=== PATIENT | female | born 1990 | race Caucasian/White ===

== ENCOUNTER → 2021-09-19 09:30 | Outpatient (BNVA) | payer OTHER, SELFPAY | PROVIDERS: PCP Internal Medicine; Visit Provider Internal Medicine | DX: E78.5 Hyperlipidemia, unspecified (principal); E55.9 Vitamin D deficiency, unspecified; E03.9 Hypothyroidism, unspecified; Z86.32 Personal history of gestational diabetes | CPT/HCPCS: 99212 ==

== ENCOUNTER 2021-09-21 09:07 | Outpatient (REF) | payer OTHER, SELFPAY ==
[2021-09-21 10:48] LABS: Estimated Average Glucose 97 mg/dL
[2021-09-21 10:52] LABS: Glucose Fasting 83 mg/dL (60-99)
[2021-09-21 11:00] LABS: Alanine Aminotransferase 10 U/L (0-31); Alkaline Phosphatase 52 U/L (39-117); Anion Gap 11 (12-20); Aspartate Amino Transferase 14 U/L (5-31); Bilirubin Total 0.4 mg/dL (0.0-1.0); Blood Urea Nitrogen 15 mg/dL (9-16); Calcium 9.3 mg/dL (8.4-10.2); Carbon Dioxide 26 mmol/L (22-29); Chloride 107 mmol/L (96-108); Cholesterol 253 mg/dL; Estimated Glomerular Filt Rate > 60; Glucose Random 85 mg/dL (60-115); HDL Cholesterol 44 mg/dL; LDL Cholesterol Calculated 189 mg/dl; Potassium 4.6 mmol/L (3.3-5.1); Sodium 139 mmol/L (135-145); Total Protein 6.7 g/dL (6.5-8.0); Triglycerides 104 mg/dL
[2021-09-21 11:16] LABS: Free T4 (Free Thyroxine) 1.09 ng/dL (0.71-1.85); Thyroid Stimulating Hormone 0.56 uIU/mL (0.32-4.0); Vitamin D 25-OH Total 19.5 ng/mL (>30)
[2021-09-21 12:21] LABS: Glucose 1 Hour 105 mg/dL
[2021-09-21 13:47] LABS: Glucose 2 Hour 95 mg/dL
[2021-09-22 08:32] LABS: LDL Cholesterol Direct 198 mg/dL (<100)
== END 2021-09-21 09:08 | disposition home or self-care (01) ==
LOC: HO.LAB 09:07
PROVIDERS: Visit Provider Internal Medicine
DX: E03.9 Hypothyroidism, unspecified (principal); E78.5 Hyperlipidemia, unspecified; E55.9 Vitamin D deficiency, unspecified; Z86.32 Personal history of gestational diabetes
CPT/HCPCS: 36415; 80053; 80061; 82306; 83036; 83721; 84439; 84443

== ENCOUNTER 2021-11-02 08:25 | Outpatient (REF) | payer OTHER, SELFPAY ==
[2021-11-02 09:55] LABS: Cholesterol 245 mg/dL; HDL Cholesterol 52 mg/dL; LDL Cholesterol Calculated 172 mg/dl; Triglycerides 108 mg/dL
[2021-11-02 10:18] LABS: Free T4 (Free Thyroxine) 1.06 ng/dL (0.71-1.85); Thyroid Stimulating Hormone 0.97 uIU/mL (0.32-4.0); Vitamin D 25-OH Total 29.7 ng/mL (>30)
[2021-11-04 01:41] LABS: LDL Cholesterol Direct 185 mg/dL (<100)
== END 2021-11-02 08:26 | disposition home or self-care (01) ==
LOC: HO.LAB 08:25
PROVIDERS: Visit Provider Internal Medicine
DX: E03.9 Hypothyroidism, unspecified (principal); E78.5 Hyperlipidemia, unspecified; E55.9 Vitamin D deficiency, unspecified
CPT/HCPCS: 36415; 80061; 82306; 83721; 84439; 84443

== ENCOUNTER → 2021-11-03 09:08 | Outpatient (BNVA) | payer OTHER, SELFPAY | PROVIDERS: PCP Internal Medicine; Visit Provider Internal Medicine | DX: Z13.89 Encounter for screening for other disorder (principal) ==

== ENCOUNTER 2022-01-30 11:08 | Outpatient (REF) | payer OTHER, SELFPAY ==
[2022-01-30 12:38] LABS: Alanine Aminotransferase 15 U/L (0-31); Albumin Level 4.2 g/dL (3.5-5.0); Alkaline Phosphatase 55 U/L (39-117); Anion Gap 9 (12-20); Aspartate Amino Transferase 14 U/L (5-31); Bilirubin Total 0.5 mg/dL (0.0-1.0); Blood Urea Nitrogen 13 mg/dL (9-16); Calcium 8.9 mg/dL (8.4-10.2); Carbon Dioxide 27 mmol/L (22-29); Chloride 106 mmol/L (96-108); Cholesterol 195 mg/dL; Estimated Glomerular Filt Rate > 60; Glucose Random 92 mg/dL (60-115); HDL Cholesterol 49 mg/dL; LDL Cholesterol Calculated 131 mg/dl; Potassium 4.3 mmol/L (3.3-5.1); Sodium 138 mmol/L (135-145); Total Protein 6.8 g/dL (6.5-8.0); Triglycerides 76 mg/dL
[2022-01-31 08:22] LABS: LDL Cholesterol Direct 136 mg/dL (<100)
[2022-02-03 12:31] LABS: Apolipoprotein B 102 mg/dL (<90)
== END 2022-01-30 11:09 | disposition home or self-care (01) ==
LOC: HO.LAB 11:08
PROVIDERS: Visit Provider Internal Medicine
DX: E78.5 Hyperlipidemia, unspecified (principal)
CPT/HCPCS: 36415; 80053; 80061; 82172; 83721

== ENCOUNTER → 2022-02-01 11:50 | Outpatient (BNVA) | payer OTHER, SELFPAY | PROVIDERS: Visit Provider Internal Medicine | DX: E78.5 Hyperlipidemia, unspecified (principal); E03.9 Hypothyroidism, unspecified; E55.9 Vitamin D deficiency, unspecified; Z79.899 Other long term (current) drug therapy | CPT/HCPCS: 99212 ==

== ENCOUNTER 2022-07-18 15:29 | Outpatient (REF) | payer OTHER, SELFPAY ==
[2022-07-18 16:39] LABS: Cholesterol 169 mg/dL; HDL Cholesterol 42 mg/dL; LDL Cholesterol Calculated 108 mg/dl; Triglycerides 97 mg/dL
[2022-07-18 16:55] LABS: Vitamin D 25-OH Total 40.1 ng/mL (>30)
[2022-07-20 03:48] LABS: LDL Cholesterol Direct 121 mg/dL (<100)
== END 2022-07-18 15:30 | disposition home or self-care (01) ==
LOC: HO.LAB 15:29
PROVIDERS: Visit Provider Internal Medicine
DX: E78.5 Hyperlipidemia, unspecified (principal); E55.9 Vitamin D deficiency, unspecified
CPT/HCPCS: 36415; 80061; 82306; 83721

== ENCOUNTER → 2022-07-19 14:50 | Outpatient (BNVA) | payer OTHER, SELFPAY | PROVIDERS: Visit Provider Internal Medicine | DX: E78.5 Hyperlipidemia, unspecified (principal); E55.9 Vitamin D deficiency, unspecified; E04.9 Nontoxic goiter, unspecified | CPT/HCPCS: 99212 ==

== ENCOUNTER 2022-08-03 08:53 | Outpatient (REF) | payer OTHER, SELFPAY ==
--- NOTE | ~2022-08-03 | US_ITS ---
EXAMINATION: US THYROID CLINICAL INFORMATION: Hypothyroidism, unspecified. COMPARISON: None TECHNIQUE: Linear transducer grayscale and color Doppler examination with attention to the region of the thyroid. FINDINGS: SIZE: Measurements of the thyroid lobes and nodules are given in sagittal, anteroposterior and transverse dimensions respectively. Right Thyroid Lobe: 5.34 x 1.61 x 1.59 cm, volume 7.17 mL. Parenchyma: The gland echotexture is homogeneous. Thyroid vascularity is normal. Left Thyroid Lobe: 4.89 x 1.33 x 1.95 cm, volume 6.63 mL. Parenchyma: The gland echotexture is homogeneous. Thyroid vascularity is normal. Isthmus: 0.31 cm in maximum AP dimension. No focal thyroid nodule is seen. NODES: No lymphadenopathy is seen in the tissue surrounding the thyroid gland. US/US thyroid IMPRESSION: Unremarkable thyroid ultrasound. ACR TI-RADS RECOMMENDATION REFERENCE: Ultrasound-guided fine-needle aspiration, followup ultrasound, no further follow up. * TR1 (0 point) and TR2 (2 points): No FNA or follow up. * TR3 (3 points): FNA if more than or equal to 2.5 cm in maximum dimension, followup ultrasound in 1, 3 and 5 years if 1.5 to 2.4 cm in maximum dimension. * TR4 (4-6 points): FNA if more than or equal to 1.5 cm in maximum dimension, followup ultrasound in 1, 2, 3 and 5 years if 1 to 1.4 cm in maximum dimension. * TR5 (more than or equal to 7 points): FNA if more than or equal to 1 cm in maximum dimension, followup ultrasound every year for 5 years if 0.5 to 0.9 cm in maximum dimension. * TR3, TR4 or TR5 nodules that are below the size threshold for followup receive no follow up.
== END 2022-08-03 08:54 | disposition home or self-care (01) ==
LOC: HO.HMGCX 08:53
PROVIDERS: Visit Provider Internal Medicine
DX: E03.9 Hypothyroidism, unspecified (principal)
CPT/HCPCS: 76536

== ENCOUNTER 2023-04-03 09:41 | Outpatient (AMB) | payer OTHER, SELFPAY ==
--- NOTE | 2023-04-03 09:46 | MHC.OFFVIS ---
Intake Vital Signs 04/03/23 09:48 Height 4 ft 11 in Weight 131 lb 2.801 oz BMI 26.5 BP 106/66 Blood Pressure Location Lt brachial Position Sitting Pulse 65 Pulse Source Pulse Oximeter Intake Visit Reasons: F/U HLD/Confirmed Intake Note: Patient present today for HLD follow up visit. Sales And Marketing Specialist Required: No Accompanied by: Self / Same As Patient Allergies No Known Allergies Allergy (Verified 04/03/23 09:51) Medication List - Last Reconciled 04/03/23 by Coleman Nicole MD atorvastatin 80 mg PO BEDTIME 90 days cholecalciferol (vitamin D3) 100 mcg (2 x 50 mcg (2,000 unit)) PO DAILY 30 days HPI HPI Comments History of Present Illness Details 32 YO Female who is seen in F/U for HLD. Patient last saw Dr. Cristina on 07/19/2022. Stopped atorvastatin because of joint pain in hands and feet and shoulder ?She reports a 3 year history of HLD. She initially was not started on any medications, but then had a lipid panel checked 06/19/19 which revealed total Cholesterol 270, Trig 111, LDL 200 and HDL 48. She was started on Atorvastatin 40 mg PO daily, but stopped this after 2 months when she became . Labs were repeated 09/21/21 which revealed Total Cholesterol 245 and LDL 198. She was started on Atorvastatin, and remains on Atorvastatin 80 mg PO daily now. She reports a distant history of hypothyroidism, but has never been on any medication for this. Repeat TFTs were WNL. She was diagnosed with gestational diabetes during her last . We checked a 2 hour OGTT as well as A1C which were both WNL. She now has had a tubal-ligation and is not planning any more pregnancies. ?Her Mother is adopted but she does report that HLD and CAD do run in her biological mother's family. She is not close with her Father or his side of the family, so is unaware of that family history as well. Mother and Father have no history of HLD. She is unaware of any family history of sudden cardiac . Labs: Laboratory Tests 01/30/22 01/30/22 07/18/22 11:26 11:26 15:37 Creatinine 0.79 Triglycerides 76 97 Cholesterol 195 D 169 LDL Cholesterol Di rect 136 H LDL Cholesterol, C alc 108 HDL Cholesterol 49 42 PFSH Medical History (Updated 07/19/22 @ 15:21 by Malia Sheffield DO) Goiter History of gestational diabetes HLD (hyperlipidemia) Vitamin D deficiency Hypothyroidism Surgical History Hx of section Family History Father No problems noted. Mother Bipolar 1 disorder Thyroid disease Diabetes mellitus Acute depression Anxiety Social History Alcohol intake: current Alcohol intake frequency: holidays/special occasions only Patient Tobacco Use Status: Former Tobacco user Quit Date: over 3 years Physical Exam Vital Signs: Last Vital Signs Pulse 65 04/03/23 09:48 BP 106/66 04/03/23 09:48 BMI result Body Mass Index 26.5 Assessment & Plan Assessment & Plan (1) HLD (hyperlipidemia): Code(s): E78.5 - Hyperlipidemia, unspecified Plan: Is a 32-year-old female with a history of hyperlipidemia most likely familial hypercholesteremia considering degree of LDL elevation. She is currently on 80 mg of atorvastatin. Goal LDL should be <100. The plan is to switch to Crestor 40 mg. I did tell patient she should take coenzyme Q10 if joint pains continue after initiation of Crestor. If she does not reach goal with Crestor and tolerates the Crestor, we could add ezetimibe 10 mg. If she cannot tolerate the Crestor, will initiate a PCSK9 inhibitor such as Praulent or Repatha Orders: Orders Lipid Panel 6 Weeks E78.5 - Hyperlipidemia, unspecified Medications: New rosuvastatin (Crestor) 40 mg PO DAILY 30 tabs 5RF Discontinued atorvastatin Discontinued Reason: Doctor's Order 80 mg PO BEDTIME 90 days 90 tabs 11RF Coding Level of Care Code Est Pt Level 3 (07713) Diagnoses HLD (hyperlipidemia) E78.5
[2023-04-03 09:48] VITALS: BP 106/66; PULSE 65; BMI 26.5
== END 2023-04-03 10:31 | disposition home or self-care (01) ==
PROVIDERS: Visit Provider Internal Medicine Endocrinology, Diabetes & Metabolism
DX: E78.5 Hyperlipidemia, unspecified (principal)
CPT/HCPCS: 99213

== ENCOUNTER → 2023-04-03 09:41 | Outpatient (BNVA) | payer OTHER, SELFPAY | PROVIDERS: Visit Provider Internal Medicine Endocrinology, Diabetes & Metabolism | DX: E78.5 Hyperlipidemia, unspecified (principal) | CPT/HCPCS: 99212 ==

== ENCOUNTER 2023-10-01 09:23 | Outpatient (REF) | payer OTHER, SELFPAY ==
[2023-10-01 10:59] LABS: Cholesterol 194 mg/dL (<200); HDL Cholesterol 50 mg/dL (>40); LDL Cholesterol Calculated 130 mg/dL (<100); Triglycerides 71 mg/dL (<150)
[2023-10-01 11:21] LABS: Vitamin D 25-OH Total 40.2 ng/mL (>30)
[2023-10-02 19:43] LABS: LDL Cholesterol Direct 151 mg/dL (<100)
== END 2023-10-01 09:24 | disposition home or self-care (01) ==
LOC: HO.LAB 09:23
PROVIDERS: Internal Medicine; Visit Provider Internal Medicine Endocrinology, Diabetes & Metabolism
DX: E78.5 Hyperlipidemia, unspecified (principal); E55.9 Vitamin D deficiency, unspecified
CPT/HCPCS: 36415; 80061; 82306; 83721

== ENCOUNTER 2023-10-02 09:21 | Outpatient (AMB) | payer OTHER, SELFPAY ==
[2023-10-02 09:23] VITALS: BP 100/50; PULSE 72; BMI 26.5
--- NOTE | 2023-10-02 09:23 | A.OFFVIS_ITS ---
Intake Vital Signs 10/02/23 09:23 Height 4 ft 11 in Weight 131 lb 2.801 oz BMI 26.5 BP 100/50 L Blood Pressure Location Lt brachial Position Sitting Pulse 72 Pulse Source Pulse Oximeter Intake Visit Reasons: f/u familial hypercholestema-confirmed Intake Note: Patient presents today for Familial Hypercholestema follow up. Science Technicians Required: No Accompanied by: Daughter Allergies No Known Allergies Allergy (Verified 10/02/23 09:29) HPI HPI Comments History of Present Illness Details 33 YO Female who is seen in F/U for HLD. . Stopped atorvastatin because of alie int pain in hands and feet and shoulder ?She reports a 3 year history of HLD. She initially was not started on any medications, but then had a lipid panel checked 06/19/19 which revealed total Cholesterol 270, Trig 111, LDL 200 and HDL 48. She was started on Atorvastatin 40 mg PO daily, but stopped this after 2 months when she became . Labs were repeated 09/21/21 which revealed Total Cholesterol 245 and LDL 198. She was started on Atorvastatin, and remains on Atorvastatin 80 mg PO daily now. She reports a distant history of hypothyroidism, but has never been on any medication for this. Repeat TFTs were WNL. She was diagnosed with gestational diabetes during her last . We checked a 2 hour OGTT as well as A1C which were both WNL. She now has had a tubal-ligation and is not planning any more pregnancies. ?Her Mother is adopted but she does report that HLD and CAD do run in her biological mother's family. She is not close with her Father or his side of the family, so is unaware of that family history as well. Mother and Father have no history of HLD. She is unaware of any family history of sudden cardiac . Labs: Laboratory Tests 01/30/22 01/30/22 07/18/22 11:26 11:26 15:37 Creatinine 0.79 Triglycerides 76 97 Cholesterol 195 D 169 LDL Cholesterol Di rect 136 H LDL Cholesterol, C alc 108 HDL Cholesterol 49 42 Currently on Repatha 140 mg in 07/2023 . Had difficulty with Crestor [facility] Medical History (Updated 07/19/22 @ 15:21 by Malia Sheffield DO) Goiter History of gestational diabetes HLD (hyperlipidemia) Vitamin D deficiency Hypothyroidism Surgical History Hx of section Family History Father No problems noted. Mother Bipolar 1 disorder Thyroid disease Diabetes mellitus Acute depression Anxiety Social History Alcohol intake: current Alcohol intake frequency: holidays/special occasions only Patient Tobacco Use Status: Former Tobacco user Quit Date: over 3 years Physical Exam Vital Signs: Last Vital Signs Pulse 72 10/02/23 09:23 BP 100/50 L 10/02/23 09:23 BMI result Body Mass Index 26.5 Assessment & Plan Assessment & Plan (1) HLD (hyperlipidemia): Code(s): E78.5 - Hyperlipidemia, unspecified Plan: Is a 33-year-old female with a history of hyperlipidemia most likely familial hypercholesteremia considering degree of LDL elevation. She is currently on Reaptha 140 mg Q2wks Goal LDL should be <100. The plan is to add Ezetimibe 10 mg . Will recheck lipid profile in 2 months . If LDL is not down to goal, could increase the dose of Repatha or consider adding Nexletol Orders: Orders LDL Cholesterol Direct 2 Months E78.5 - Hyperlipidemia, unspecified Lipid Panel 2 Months E78.5 - Hyperlipidemia, unspecified Thyroid Stimulating Hormone Today E78.5 - Hyperlipidemia, unspecified Free T4 (Free Thyroxine) Today E78.5 - Hyperlipidemia, unspecified Medications: New ezetimibe (Zetia) 10 mg PO DAILY 30 tabs 4RF Discontinued rosuvastatin (Crestor) Discontinued Reason: Doctor's Order 20 mg PO DAILY 30 tabs 4RF Coding Level of Care Code Est Pt Level 3 (24285) Diagnoses HLD (hyperlipidemia) E78.5
== END 2023-10-02 10:05 | disposition home or self-care (01) ==
PROVIDERS: Visit Provider Internal Medicine Endocrinology, Diabetes & Metabolism
DX: E78.5 Hyperlipidemia, unspecified (principal)
CPT/HCPCS: 99213

== ENCOUNTER 2023-10-02 09:21 | Outpatient (REF) | payer OTHER, SELFPAY ==
[2023-10-02 11:48] LABS: Thyroid Stimulating Hormone 0.85 uIU/mL (0.32-4.0)
== END 2023-10-02 09:22 | disposition home or self-care (01) ==
LOC: HO.LAB 09:21
PROVIDERS: Visit Provider Internal Medicine Endocrinology, Diabetes & Metabolism
DX: E78.5 Hyperlipidemia, unspecified (principal)
CPT/HCPCS: 36415; 84439; 84443

== ENCOUNTER 2024-01-01 09:52 | Outpatient (REF) | payer OTHER, SELFPAY ==
[2024-01-01 11:29] LABS: Cholesterol 164 mg/dL (<200); HDL Cholesterol 50 mg/dL (>40); LDL Cholesterol Calculated 101 mg/dL (<100); Triglycerides 69 mg/dL (<150)
[2024-01-03 08:57] LABS: LDL Cholesterol Direct 110 mg/dL (<100)
== END 2024-01-01 09:53 | disposition home or self-care (01) ==
LOC: HO.LAB 09:52
PROVIDERS: Visit Provider Internal Medicine Endocrinology, Diabetes & Metabolism
DX: E78.5 Hyperlipidemia, unspecified (principal)
CPT/HCPCS: 36415; 80061; 83721

== ENCOUNTER 2024-01-02 14:28 | Outpatient (AMB) | payer OTHER, SELFPAY ==
[2024-01-02 14:29] VITALS: BP 104/68; PULSE 79; BMI 26.0
--- NOTE | 2024-01-02 14:29 | MHC.OFFVIS ---
Vital Signs 01/02/24 14:29 Height 4 ft 11 in Weight 128 lb 15.527 oz BMI 26.0 BP 104/68 Blood Pressure Location Lt brachial Position Sitting Pulse 79 Pulse Source Pulse Oximeter Intake Visit Reasons: f/u familial hyperlipidemia Intake Note: Patient present today for Familial Hyperlipidemia follow up visit. Tax Accounting Manager Required: No Accompanied by: Child Allergies No Known Allergies Allergy (Verified 10/02/23 09:29) HPI Comments Details: 33 YO Female who is seen in F/U for HLD. . Stopped atorvastatin because of joint pain in hands and feet and shoulder ?She reports a 3 year history of HLD. She initially was not started on any medications, but then had a lipid panel checked 06/19/19 which revealed total Cholesterol 270, Trig 111, LDL 200 and HDL 48. She was started on Atorvastatin 40 mg PO daily, but stopped this after 2 months when she became . Labs were repeated 09/21/21 which revealed Total Cholesterol 245 and LDL 198. She was started on Atorvastatin, and remains on Atorvastatin 80 mg PO daily now. She reports a distant history of hypothyroidism, but has never been on any medication for this. Repeat TFTs were WNL. She was diagnosed with gestational diabetes during her last . We checked a 2 hour OGTT as well as A1C which were both WNL. She now has had a tubal-ligation and is not planning any more pregnancies. ?Her Mother is adopted but she does report that HLD and CAD do run in her biological mother's family. She is not close with her Father or his side of the family, so is unaware of that family history as well. Mother and Father have no history of HLD. She is unaware of any family history of sudden cardiac . Labs: Laboratory Tests 01/30/22 01/30/22 07/18/22 11:26 11:26 15:37 Creatinine 0.79 Triglycerides 76 97 Cholesterol 195 D 169 LDL Cholesterol Direct 136 H LDL Cholesterol, Calc 108 HDL Cholesterol 49 42 Currently on Repatha 140 mg in 07/2023 . Had difficulty with Crestor . Also on ezetimibe 10 mg [facility] Medical History (Updated 07/19/22 @ 15:21 by Malia Sheffield DO) Goiter History of gestational diabetes HLD (hyperlipidemia) Vitamin D deficiency Hypothyroidism Surgical History Hx of section Family History Father No problems noted. Mother Bipolar 1 disorder Thyroid disease Diabetes mellitus Acute depression Anxiety Social History Alcohol intake: current Alcohol intake frequency: holidays/special occasions only Patient Tobacco Use Status: Former Tobacco user Assessment & Plan Assessment & Plan (1) HLD (hyperlipidemia): Code(s): E78.5 - Hyperlipidemia, unspecified Category: Medical Plan: Is a 33-year-old female with a history of hyperlipidemia most likely familial hypercholesteremia considering degree of LDL elevation. She is currently on Reaptha 140 mg Q2wks and ezetimibe 10 mg Goal LDL should be <100. She is currently at around goal The plan is to continue the current regimen. At this point, patient returned to the care of her primary care provider and returned back to endocrinology as needed Coding Level of Care Code Est Pt Level 3 (32057) Diagnoses HLD (hyperlipidemia) E78.5
== END 2024-01-02 14:46 | disposition home or self-care (01) ==
PROVIDERS: Visit Provider Internal Medicine Endocrinology, Diabetes & Metabolism
DX: E78.5 Hyperlipidemia, unspecified (principal)
CPT/HCPCS: 99213

== ENCOUNTER → 2024-01-02 14:28 | Outpatient (BNVA) | payer OTHER, SELFPAY | PROVIDERS: Visit Provider Internal Medicine Endocrinology, Diabetes & Metabolism ==

== ENCOUNTER 2024-05-14 11:27 | Outpatient (AMB) | payer OTHER, SELFPAY ==
--- NOTE | 2024-05-14 11:29 | MHC.OFFVIS ---
Vital Signs 05/14/24 11:32 Height 4 ft 11 in Weight 126 lb 1.671 oz BMI 25.5 BP 102/62 Blood Pressure Location Rt brachial Position Sitting Pulse 94 Pulse Source Pulse Oximeter Intake Visit Reasons: f/u familial hyperlipidemia-conf Intake Note: Patient present today for Familial Hyperlipidemia follow up visit. Cocoa Room Operator Required: No Accompanied by: Self / Same As Patient Allergies No Known Allergies Allergy (Verified 05/14/24 11:32) HPI Comments Details: 33 YO Female who is seen in F/U for HLD. . Stopped atorvastatin because of joint pain in hands and feet and shoulder ?She reports a 3 year history of HLD. She initially was not started on any medications, but then had a lipid panel checked 06/19/19 which revealed total Cholesterol 270, Trig 111, LDL 200 and HDL 48. She was started on Atorvastatin 40 mg PO daily, but stopped this after 2 months when she became . Labs were repeated 09/21/21 which revealed Total Cholesterol 245 and LDL 198. She was started on Atorvastatin, and remains on Atorvastatin 80 mg PO daily now. She reports a distant history of hypothyroidism, but has never been on any medication for this. Repeat TFTs were WNL. She was diagnosed with gestational diabetes during her last . We checked a 2 hour OGTT as well as A1C which were both WNL. She now has had a tubal-ligation and is not planning any more pregnancies. ?Her Mother is adopted but she does report that HLD and CAD do run in her biological mother's family. She is not close with her Father or his side of the family, so is unaware of that family history as well. Mother and Father have no history of HLD. She is unaware of any family history of sudden cardiac . Labs: Laboratory Tests 01/30/22 01/30/22 07/18/22 11:26 11:26 15:37 Creatinine 0.79 Triglycerides 76 97 Cholesterol 195 D 169 LDL Cholesterol Direct 136 H LDL Cholesterol, Calc 108 HDL Cholesterol 49 42 Currently on Repatha 140 mg in 07/2023 . Had difficulty with Crestor . Also on ezetimibe 10 mg [facility] Medical History (Updated 07/19/22 @ 15:21 by Malia Sheffield DO) Goiter History of gestational diabetes HLD (hyperlipidemia) Vitamin D deficiency Hypothyroidism Surgical History Hx of section Family History Father No problems noted. Mother Bipolar 1 disorder Thyroid disease Diabetes mellitus Acute depression Anxiety Social History Alcohol intake: current Alcohol intake frequency: holidays/special occasions only Patient Tobacco Use Status: Former Tobacco user Physical Exam Vital Signs: Last Vital Signs Pulse 94 05/14/24 11:32 BP 102/62 05/14/24 11:32 BMI result Body Mass Index 25.5 Assessment & Plan Assessment & Plan (1) HLD (hyperlipidemia): Code(s): E78.5 - Hyperlipidemia, unspecified Category: Medical Plan: Is a 33-year-old female with a history of hyperlipidemia most likely familial hypercholesteremia considering degree of LDL elevation. She is currently on Reaptha 140 mg Q2wks and ezetimibe 10 mg Goal LDL should be <100. She is currently slightly above goal The plan is to recheck the lipid profile once the patient has been consistently on the Repatha and Zetia. If LDL cholesterol is > 70 , could consider changing the Zetia to Nexlizet which is a combination of bempodoic acid and ezetimide Orders: Orders Lipid Panel Today E78.5 - Hyperlipidemia, unspecified Medications: Refilled evolocumab (Repatha SureClick) 140 mg subcut Q2W 2 mL 5RF Coding Level of Care Code Est Pt Level 3 (92391) Diagnoses HLD (hyperlipidemia) E78.5
[2024-05-14 11:32] VITALS: BP 102/62; PULSE 94; BMI 25.5
== END 2024-05-14 11:49 | disposition home or self-care (01) ==
LOC: HO.ENCR 11:27
PROVIDERS: Visit Provider Internal Medicine Endocrinology, Diabetes & Metabolism
DX: E78.5 Hyperlipidemia, unspecified (principal)
CPT/HCPCS: 99213

== ENCOUNTER → 2024-05-14 11:27 | Outpatient (BNVA) | payer OTHER, SELFPAY | PROVIDERS: Visit Provider Internal Medicine Endocrinology, Diabetes & Metabolism ==

== ENCOUNTER 2024-05-23 09:48 | Outpatient (REF) | payer OTHER, SELFPAY ==
[2024-05-23 14:26] LABS: Cholesterol 147 mg/dL (<200); HDL Cholesterol 48 mg/dL (>40); LDL Cholesterol Calculated 86 mg/dL (<100); Triglycerides 69 mg/dL (<150)
== END 2024-05-23 09:49 | disposition home or self-care (01) ==
LOC: HO.CHCLDS 09:48
PROVIDERS: Visit Provider Internal Medicine Endocrinology, Diabetes & Metabolism
DX: E78.5 Hyperlipidemia, unspecified (principal)
CPT/HCPCS: 36415; 80061

== ENCOUNTER 2024-11-10 09:13 | Outpatient (REF) | payer OTHER, SELFPAY ==
[2024-11-10 09:37] LABS: MANUAL DIFF FLAG NO
--- OUTSIDE RECORDS SUMMARY | 2024-11-10 09:55 | XMS_ITS | Encounter Summary ---
Author Organization [employer] Address [address] [place] [address] Care Team Providers Care Flight Teacher Name Role Phone Theo Ferro MD Primary Care Prov ider Encounter Details Date Type Department Care Team ([facility] st Contact Info) Description 08/06/2024 Orders Only [facility] [address] [place], [place] [id number] ProviderJose Guadalupe MD Social History Tobacco Use Types Packs/Day Years Used Date Smoking Tobacco: Never Assessed Depression Answer Date Recorded Patient Health Questionnaire-9 Score 19 05/23/2024 Patient Health Questionnaire-9 Score 19 05/23/2024 Last PHQ-9: Questionnaire Data Not on file 1 07/23/2023 Housing Stability Answer Date Recorded What is your housing situation today? I have tuan panda 05/23/[address] you li ve. Do you have problems with any of the following? None of the above 05/23/2024 Food Insecurity Answer Date Recorded Within the past 12 months, y ou worried that your food would run out before you got money to buy more: Never True 05/23/2024 Within the past 12 months,th e food you bought just didn't last and you didn't have enough money to get more: Never True Transportation Answer Date Recorded In the past 12 months, has l ack of transportation kept you from medical appts, meetings, work or from getting things needed for daily living? No 05/23/2024 Utilities Answer Date Recorded In the past 12 months, has t he electric, gas, oil or water company threatened to shut off services in your home? No 05/23/2024 Depression Answer Date Recorded Patient Health Questionnaire-2 Score 4 05/23/2024 Internet Access Answer Date Recorded Internet Access Q1 Yes 05/23/2024 Internet Access Q2 Not on file 05/23/2024 Comments Unknown Sex and Gender Information Value Date Recorded Sex Assigned at Female 05/08/2022 10:36 AM EDT Legal Sex Female 10:36 AM EDT Gender Identity Female 11/21/2022 9:33 AM EDT Sexual Orientation Don't know 11/21/2022 9: 33 AM EDT documented as of this encounter Plan of Treatment Not on file documented as of this encounter Procedures Procedure Name Priority Date/Time Associated Diagnosis Comments HM PAP/HPV Routine 08/28/2023 2:37 PM EST documented in this encounter Results * HM PAP/HPV (08/28/2023 2:37 PM EST) us Historical Provider HEALTH MAINTENANCE Final Result documented in this encounter Visit Diagnoses Not on filedocumented in this encounter Additional Health Concerns Assessment Noted Time PHQ-9 Depression Total Score: 19 024 9:07 AM EST documented as of this encounter Care Teams Flight Teacher Relationship Specialty Start Date End Date Theo Ferro MD [address] [place] [id number] PCP - General Internal Medicine 06/19/19 documented as of this encounter
--- OUTSIDE RECORDS SUMMARY | 2024-11-10 09:55 | XMS_ITS | Clinical Summary ---
Author Organization [employer] Address [address] [facility] [address] [place] [address] Care Team Providers Care Hotel Or Motel Receptionist Name Role Phone Theo Ferro MD Primary Care Prov ider Allergies No known active allergies Medications * This document contains information received from the source organization and may not represent a complete record from that organization. Omeprazole 20 MG tablet delayed-release Take 20 mg by mouth in the morning. 60 tablet 11/21/2022 Active escitalopram (Lexapro) 20 MG tablet TAKE 1 TABLET BY MOUTH EVERY DAY 90 tablet 3 08/19/2024 Active Active Problems Problem Noted Date Diagnosed Date Severe episode of recurrent major depressive disorder, without psychotic features 05/23/2024 Assessment & Plan (05/23/2024 1:47 PM EST): Will start on escitalipram, referred to services, no acitve suicidal/homicidal ideas, provided with crisi phone number, will follow up in 1 month CASSIDY (generalized anxiety disorder) 05/23/2024 Gastroesophageal reflux disease without esophagi tis 11/21/2022 Assessment & Plan (11/21/2022 10:04 AM EDT): Will start on omeprazole, discussed lifestyle modification Bloating 11/21/2022 Assessment & Plan (11/21/2022 10:05 AM EDT): Will test for Hpylori infection, told to avoid any h2 inhibitor/ppi until tested Encounters Date Type Department Care Team Description 08/18/2024 Refill [facility] [address] [place] [address] Theo Ferro MD from Last 3 Months Immunizations Name Administration Dates Next Due Influenza Injectable Quadriv alant Preservative Free IIV4 MDCK 04/22/2018 Influenza, IIV3, injectable 08/13/2020, 4 MMR 08/15/2020 Tdap 11/29/2022,04/08/2014,01/05/2013 Social History Tobacco Use Types Packs/Day Years [...] Don't know 11/21/2022 9: 33 AM EDT Last Filed Vital Signs Vital Sign Reading Time Taken Comments Blood Pressure 132/74 05/23/2024 8:51 AM EST Pulse 72 05/23/2024 8:51 AM EST Temperature 36.4 ??C (97.5 ??F) 05/23/2024 8:51 AM ES T Respiratory Rate 20 05/23/2024 8:51 AM EST Oxygen Saturation - - Inhaled Oxygen Concentration - - Weight 54.9 kg (121 lb) 05/23/2024 8:51 AM EST Height 151.1 cm (4' 11.5 ) 05/23/2024 8:51 AM ES T Body Mass Index 24.03 05/23/2024 8:51 AM EST Plan of Treatment Health Maintenance Due Date Last Done Comments Tobacco Screening 2001 Family Planning (PISQ) 2004 Hepatitis B Vaccines (1 of 3 - 19+ 3-dose series) 2008 COVID-19 Vaccine (2023-2 5 season) 2024 Influenza Vaccine (#1) 2024 , 04/22/2018, 04/08/2014 Depression Monitoring 11/20/2024 05/23/2024 , 05/23/2024 Alcohol/Substance Use Screening 05/23/2025 05/23/2024 Depression Screening 05/23/2025 05/23/2024, 05/23/2024 SDOH Screening 05/23/2025 05/23/2024 Cervical Cancer Screening 08/28/2028 HPV/Cotest 08/28/2028 Pap Smear 08/28/2028 08/28/2023 DTaP/Tdap/Td Vaccines (4 - T d or Tdap) 11/29/2032 11/29/2022, 04/08/2014, 01/05/2013 Zoster Vaccines (1 of 2) 2039 RSV Patients and Patients Aged 60 years or older (1 - 1-dose 75+ series) 2064 HIV Screening Completed 11/22/2022 Hepatitis C Screening Completed 11/22/2022 HIB Vaccines Aged Out No longer eligi ble based on patient's age to complete this topic HPV Vaccines Aged Out No longer eligi ble based on patient's age to complete this topic Hepatitis A Vaccines Aged Out No long er eligible based on patient's age to complete this topic IPV Vaccines Aged Out No longer eligi ble based on patient's age to complete this topic Meningococcal Vaccine Aged Out No emy charlene eligible based on patient's age to complete this topic Pneumococcal Vaccine: Pediatrics (0 to 5 Years) and At-Risk Patients (6 to 49) Years) Aged Out No longer eligible b ased on patient's age to complete this topic RSV under 20 months Aged Out No longe r eligible based on patient's age to complete this topic Rotavirus Vaccines Aged Out No longer eligible based on patient's age to complete this topic Procedures Procedure Name Priority Date/Time Associated Diagnosis Comments HM PAP/HPV Routine 08/28/2023 2:37 PM EST HEPATITIS C AB W/REFL TO HCV RNA, QN, PCR Routine 11/22/2022 8:46 AM EDT Gastroesophageal reflux disease without esophagitis HIV 1 RNA, QN PCR W/RFL MALLORY (RTI,PI,INTEGRASE) Routine 11/22/2022 8:46 AM EDT Gastroesophageal reflux disease without esophagitis from Last 3 Months or Most Recently Relevant to Health Maintenance Results * HM PAP/HPV (08/28/2023 2:37 PM EST) Historical Provider MD HEALTH MAINTENANCE Final Result * HIV-1 RNA, Quantitative, Real-Time PCR with Reflex to Genotype (RTI, PI, Integrase) (11/22/2022 8:46 AM EDT) HIV 1 RNA, QN PCR NOT DETECTED copies/mL [email or web address], HIV 1 RNA, QN PCR NOT DETECTED Log copies/mL [facility], Comment: REFERENCE RANGE: NOT DETECTED copies/mL ?NOT DETECTED ??Log copies/mL This test was performed using Real-Time Polymerase Chain Reaction. Reportable range is 20 to 10,000,000 copies/mL (1.30-7.00 Log copies/mL). 11/22/2022 8:46 AM EDT 11/22/2022 8:48 AM EDT Narrative [facility] - 11/26/2022 3:05 AM EDT FASTING:YES FASTING: YES Theo Mcdowell MD LAB BLOOD ORDERABL ES Final Result Performing Organization Address [facility] Co de Phone Number [facility] [address], [facility] [place] [address] [facility], [address] [place] [address] * Hepatitis C Antibody with Reflex to HCV, RNA, Quantitative, Real-Time PCR (11/22/2022 8:46 AM EDT) Hepatitis C Antibody NON-REACT TRISH NON-REACT TRISH [facility] [place] [facility] Index <0.02 <1.00 [facility] [place] [facility] Comment: HCV antibody was non-reactive. There is no laboratory evidence of HCV infection. In most cases, no further action is required. However, if recent HCV exposure is suspected, a test for HCV RNA (test code 89994) is suggested. For additional information please refer to http://education.ThisClicks/faq/DWJ29n3 (This link is being provided for informational/ educational purposes only.) Blood Venous blood specimen / Unknown 11/22/2022 8:46 AM EDT 11/22/2022 8:48 AM EDT Narrative [facility] - 11/26/2022 3:05 AM EDT FASTING:YES FASTING: YES Theo Mcdowell MD LAB BLOOD ORDERABL ES Final Result Performing Organization Address [facility]/ZIP Co de Phone Number [facility] [address], [facility] [place] [address] [facility] [place] [facility] [address] [place] [address] from Last 3 Months or Most Recently Relevant to Health Maintenance Insurance [facility] Care Teams Hotel Or Motel Receptionist Relationship Specialty Start Date End Date Theo Ferro MD [address] [place] [id number] PCP - General Internal Medicine 06/19/19
--- OUTSIDE RECORDS SUMMARY | 2024-11-10 09:55 | XMS_ITS | Data Portability ---
Author Organization TALIA Velásquez s, [address] Address [address] [place] [address] Assessment No assessment recorded. Plan of Treatment Reminders Order Date Submit Date Provider Last Modified By Organization Details Last Modified Time Details Appointments None recorded. Lab SARS CoV 2 (COVID-19) Ag, QL, IA, upper respiratory specimen 2022 023 [email or web address] [facility], [address] [place], [address], 3 20:22:44 rapid flu (A+B) 2022 023 [email or web address] [facility], [address] [place], [address], 3 20:22:45 rapid strep group A, throat 2022 023 [email or web address] [facility] [address], [address] [place], [address], 3 20:22:46 streptococc us group A, culture, throat 2022 023 FABENS [facility] ([facility], [address] [place] [address], [place], [address], 3 06:08:21 SARS CoV 2 (COVID-19) Ag, QL, IA, upper respiratory specimen 2022 023 [facility], [address] [place], [address], 3 10:30:00 rapid flu (A+B) 2022 023 [email or web address] [facility] [address], [address] [place], [address], 10:37:04 Referral None recorded. Procedures None recorded. Surgeries None recorded. Imaging None recorded. Medication Orders Tylenol Cold and Flu Severe 5 mg-10 mg-325 mg-200 mg/15 mL oral liquid 2022 023 [id number], [address] [place], [address], 20:24:02 ipratropium bromide 42 mcg (0.06 %) nasal spray 2022 023 [facility], [address] [place], [address], 20:24:01 albuterol sulfate HFA 90 mcg/actuati on aerosol inhaler 2022 023 [facility], [address] [place], [address], 20:24:02 fexofenadin e-pseudoeph edrine ER 180 mg-240 mg tablet,ext. release 24 hr 2022 023 [email or web address] 5 [id number], [address] [place], [address], 3 19:57:32 Allergy Relief (fluticason e) 50 mcg/actuati on nasal spray,suspe nsion 2022 023 [id number], [address] [place], [address], 19:57:31 Patient TargetsNo targets recorded. Patient Instructions Encounter Date Encounter Id Patient Instructions Last Modified By Organization Details Last Modified Time 03/03/2023 [id number] coronavirus (covid-19): care instructions [email or web address] Not available 03/03/2023 10:29:59 Sinusitis is an infection of the lining of the sinus cavities in your head. Sinusitis often follows a cold. It causes pain and pressure in your head and face. In most cases, sinusitis gets better on its own in 1 to 2 weeks. But some mild symptoms may last for several weeks. Sometimes antibiotics are needed. if you are having problems. It's also a good idea to know your test results and keep a list of the medicines you take. How can you care for yourself at home? Take an dwlv-ers-itzxrlz pain medicine. Avoid Ibuprofen, Aleve and Aspirin if . If the doctor prescribed antibiotics, take them as directed. Do not stop taking them just because you feel better. You need to take the full course of antibiotics. Be careful when taking whky-pwc-gvitjnk cold or influenza (flu) medicines and Tylenol at the same time. Many of these medicines have acetaminophen, which is Tylenol. Read the labels to make sure that you are not taking more than the recommended dose. Too much acetaminophen (Tylenol) can be harmful. Breathe warm, moist air from a steamy shower, a hot bath, or a sink filled with hot water. Avoid cold, dry air. Using a humidifier in your home may help. Follow the directions for cleaning the machine. Use saline (saltwater) nasal washes. This can help keep your nasal passages open and wash out mucus and bacteria. You can buy saline nose drops at a grocery store or drugstore. Or you can make your own at home by adding 1 teaspoon (5 millilitres) of salt and 1 teaspoon (5 millilitres) of baking soda to 2 cups (500 mL) of distilled water. If you make your own, fill a bulb syringe with the solution, insert the tip into your nostril, and squeeze gently. Blow your nose. Put a hot, wet towel or a warm gel pack on your face 3 or 4 times a day for 5 to 10 minutes each time. Try a decongestant nasal spray like oxymetazoline (Drixoral). Do not use it for more than 3 days in a row. Using it for more than 3 days can make your congestion worse. Not available 03/03/2023 10:36:21 If you test posi tive for COVID-19, stay home for at least 5 days and isolate from others in your home. ?You are likely most infectious during these first 5 days. ?Wear a high-quality mask if you must be around others at home and in public. Do not go places where you are unable to wear a mask. For travel guidance, see [facility]? s Travel webpage. Do not travel. Stay home and separate from others as much as possible. Use a separate bathroom, if possible. Take steps to improve ventilation at home, if possible. Don? t share personal household items, like cups, towels, and utensils. Monitor your symptoms. If you have an emergency warning sign (like trouble breathing), seek emergency medical care immediately. If you had symptoms and: Your symptoms are improving You may end isolation after day 5 if: ?You are fever-free for 24 hours (without the use of fever-reducing medication). Your symptoms are not improving Continue to isolate until: ?You are fever-free for 24 hours (without the use of fever-reducing medication). Your symptoms are improving. ?Regardless of when you end isolation Until at least day 11: Avoid being around people who are more likely to get very sick from COVID-19. Remember to wear a high-quality mask when indoors around others at home and in public. Do not go places where you are unable to wear a mask until you are able to discontinue masking (see below). For travel guidance, see [facility]? s Travel webpage. Not available 03/03/2023 10:29:57 06/05/2023 [id number] Acute upper respiratory infection is a common clinical condition characterized by an acute onset but persistent cough, with or without sputum production. It is typically self-limited, resolving within one to three weeks. Symptoms result from inflammation of the lower respiratory tract and are most frequently due to viral infection. Treatment is focused on patient education and supportive care. Antibiotics are not needed for the great majority of patients with acute bronchitis but are greatly overused for this condition. Reducing antibiotic use for acute bronchitis is a national and international health care priority. In most patients, the cough persists for 1 to 3 weeks, with a average duration of 18 days. The cough may be associated with either purulent or nonpurulent sputum production The presence of purulent sputum is a nonspecific finding and does not appear to be predictive of bacterial infection or that antibiotics are needed. For the great majority of patients, use of antibiotics does not hasten recovery or prevent complications but puts patients at increased risk of adverse effects including potentially severe complications such as Clostridioides difficile infection and anaphylaxis. Non-Pharmacological treatment for coughin. Throat lozenges 2. Hot tea 3. Honey 4. Smoking cessation 5. Avoidance of secondhand smoke. Pharmacological Treatment: 1. Robatussin or Guafenasin 2. Antihistamines 3. Dextromethoraphen I would plan on being seen again if any of the following symptoms develop: 1. Fever (100.5) 2. Shortness of breath 3. Wheezing 4. Worsening Cough. I would go to the ER if you develop: 1. Severe Shortness of breath 2. Chest Pain 3. Wheezing 4. Coughing up Blood Not available 06/05/2023 20:23:58 Reason for Referral None Reported. Results Created Date Observation Date Name Description Value Unit Range Abnormal Flag Note LastModifiedBy Organization Detail LastModifiedTime 03/03/2003/03/2023 rapid flu (A+B) Unknown Analyte negati ve Not Available [facility] [address] [place], [address], 03/03/2023 10:05:35 03/03/20 23 03/03/2023 rapid flu (A+B) Unknown Analyte negati ve Not Available [facility] [address] [place], [address], 03/03/2023 10:05:35 03/03/20 23 03/03/2023 SARS CoV 2 (COVI D-19) Ag, QL, IA, upper respi rator y speci men Unknown Analyte positi ve Not Available [facility] [address] [place], [address], 03/03/2023 10:04:16 06/05/20 23 06/09/2023 BETA STREP GP A CULTU RE beta strep gp A culture NEGATI VE Refer ence Range : Negat kodi Not Available [facility] ([facility]) [address] [facility], [place], [address], 06/09/2023 06:08:21 06/05/2006/05/2023 rapid flu (A+B) Unknown Analyte negati ve Not Available [facility] [address] [address] [place], [address], 06/05/2023 20:18:13 06/05/20 23 06/05/2023 rapid flu (A+B) Unknown Analyte negati ve Not Available [facility] [address] [place], [address], 06/05/2023 20:18:13 06/05/20 23 06/05/2023 SARS CoV 2 (COVI D-19) Ag, QL, IA, upper respi rator y speci men Unknown Analyte negati ve Not Available [facility] [address] [address] [place], [address], 06/05/2023 20:17:56 06/05/2006/05/2023 rapid strep group A, throa t Unknown Analyte negati ve Not Available [facility] [address] [address] [place], [address], 06/05/2023 20:18:27 06/05/20 23 06/05/2023 rapid strep group A, throa t Unknown Analyte yes Not Available [facility] [address] [place], [address], 06/05/2023 20:18:27 Result Notes None recorded. Problems Name Problem SNOMED Code Status Onset Date Resolution Date Notes Provider Name and Address Organization Details Recorded Time Hyperlipidemia 00632733 Active 2022 JAYNA CUELLODENG roblero, PA - [facility] 10:06:35 Problem Notes None recorded. Procedures Surgical History Date Name Laterality Status Provider Name and Address Organization Details Recorded Time section completed JAYNA CUELLODENG PA - [facility] 03/03/2023 10:06:45 ligation of fallopian tube completed JAYNA CUELLOWOOKelli PA - [facility] 03/03/2023 10:06:57 Imaging Results None recorded. Procedure Notes None recorded. Medical Equipment None Reported. Allergies No known drug allergies Medications Name Sig Start Date Stop Date Status Note LastModified by Organization Details LastModified Time atorvastati n 80 mg tablet TAKE 1 TABLET BY MOUTH EVERY DAY AT BEDTIME 06/05 completed Not Available Not Available Not Available prednisone 10 mg tablet TAKE 6 TABLETS DAILY FOR 2 DAYS, 5 TABS X 2, 4 TABS X 2, 3 TABS X 2, 2 TABS X 2, THEN 1 TAB X 2 DAYS 03/03 completed Not Available Not Available Not Available ipratropium bromide 42 mcg (0.06 %) nasal spray Mikado 2 sprays 3 times a day by intranasa l route for 10 days. 2022 active Not Available Not Available Not Avai lable Ventolin HFA 90 mcg/actuati on aerosol inhaler INHALE 2 PUFFS INTO THE LUNGS EVERY 4 HOURS NEEDED FOR 30 DAYS active Not Available Not Available No t Available rosuvastati n 40 mg tablet 40 MG ORALLY DAILY 06/05 completed Not Available Not Available Not Available magnesium active Not Available Not Kaylah ilable Not Available biotin active Not Available Not Availa ble Not Available Vitamin D3 active Not Available Not Av ailable Not Available B12 active Not Available Not Availa ble Not Available Tylenol Cold and Flu Severe 5 mg-10 mg-325 mg-200 mg/15 mL oral liquid Take 30 mL every 4-6 hours by oral route as needed for 5 days. 2022 active Not Available Not Available Not Avai lable Multi Vitamin active Not Available Not Available Not Available Repatha SureClick 140 mg/mL subcutaneou s pen injector active Not Available Not Available Not Available Allergy Relief (fluticason e) 50 mcg/actuati on nasal spray,suspe nsion Mikado 1 spray twice a day by intranasa l route as directed for 30 days. 06/05 completed Not Available Not Available Not Available Allergy Relief-D (fexofenadi ne) 180 mg-240 mg tablet,ext. release 24 hr TAKE 1 TABLET EVERY DAY BY ORAL ROUTE IN THE EVENING FOR 10 DAYS. 06/05 completed Not Available Not Available Not Available Vitals Date Recorded Body height Body mass index (BMI) Body weight Respiratory rate Pain severity - 0-10 verbal numeric rating [Score] - Reported Oxygen saturation Oxygen saturation in Arterial blood by Pulse oximetry Heart rate Body temperature Systolic blood pressure Diastolic blood pressure Provider Name and Address Organization Details Last Updated DateTime 3 149.86 cm 25.2 kg/m2 28471.0 5 g 16 /min 7 98 % 98 % 79 /min 97.7 [degF] 136 mm[Hg] 72 mm[Hg] JAYNA SPARKS [facility] 3 10:09:08 Date Recorded Body height Body mass index (BMI) Body weight Oxygen saturation Oxygen saturation in Arterial blood by Pulse oximetry Heart rate Respiratory rate Body temperature Systolic blood pressure Diastolic blood pressure Provider Name and Address Organization Details Last Updated DateTime 3 149.86 cm 25.2 kg/m2 86506.0 5 g 98 % 98 % 104 /min 17 /min 98.9 [degF] 124 mm[Hg] 76 mm[Hg] Eloise Love PA - [facility] 3 20:00:58 Social History Question Answer Notes LastModified by Organizat ion Details LastModified Time Tobacco Smoking Status Former Smoker JAYNA roblero PA - [facility] 03/03/2023 10:07:37 What Is Your Level Of Alcohol Consumption? Occasional Information not available 03/03/2023 When Did You Quit Smoking? 1-5yearssincel astcigarette Quit 4 Years Ago Information not available 03/03/2023 Have You Had A Flu Shot This Season? Yes Information not available 06/05/2023 Have You Had Direct Contact, Or Contact During Intimacy, With Monkeypox Rash, Scabs, Or Body Fluids From A Person With Monkeypox? No Information not available 06/05/2023 What Was The Date Of Your Most Recent Tobacco Screening? 06/05/2023 Information not available 06/05/2023 Do You Use Any Illicit Or Recreational Drugs? No Information not available 03/03/2023 Have You Recently Traveled Abroad? No Information not available 03/03/2023 Do You Or Have You Ever Used Any Other Forms Of Tobacco Or Nicotine? No Information not available 06/05/2023 Sex: Unknown Functional Status None recorded. Mental Status None recorded. Family History Relationship Description Onset Age of this Age Resolved Age Notes LastModified by Organization Details LastModified Time Mother Diabetes mellitus [email or web address] Not available 2022 10:07:09 Mother Disorder of thyroid gland [email or web address] Not available 2022 10:07:15 Medical History No medical history recorded. Gynecological History Statement/Question Response Date of LMP 05/23/2023 Is there any chance of ? No LMP Approximate Obstetrics History GPAL:G 0 P 0 0 0 0 Past Encounters Encounter ID Performer Location Encounter Start Date Encounter Closed Date Diagnosis/Indication Diagnosis SNOMED-CT Code Diagnosis ICD10 Code Diagnosis [place] [id number] [place] [address] [place] [address] 03/03/2023 09:53:46 03/03/2023 10:38:45 Exposure to SARS-CoV-2 266680598 Z20.822 Acute sinusitis 73761972 J01.90 [id number] TALIA CERVANTES [address] [place] [address] 06/05/2023 19:14:45 06/05/2023 20:25:52 Upper respiratory infection 38231656 J06.9 Acute pharyngitis 806618 003 J02.9 Health Concerns Section Related Observation LastModified by Organization Detai ls LastModified Time None Recorded Concern Status LastModified by Organization Details LastModified Time None Recorded Advance Directives Directive None Recorded Payers Encounter Date Sequence Insurance Name Policy Number Policy Ag Covered Member ID Ag Member ID Guarantor Name 03/03/2023 1 [facility] [id number] [place] [employer] [id number] 1 [place] [employer] 06/05/2023 1 [facility] [id number] [place] [employer] [id number] 1 [place] [employer] 06/05/2023 1 [facility] (HMO) [id number] [place] [employer] [id number] 1 [place] [employer] Notes Date Note Type Note Provider Name and Address Organization Details Recorded Time 03/03/2023 text/html Sinus Complaints UCReported bypatient.Location:sin us pain;facial pain;sinus pressure Associated Symptoms:no fever; no nausea or vomiting; no sore throat; no ear fullness; no nasal itching; no eye itching; no dizziness;difficulty breathing;Post nasal drip;nasal passage blockage;cough Onset/Timing:worse in am; worse in pm Quality:minimal discomfort;worsening; clear Duration:frequent Severity:moderate Context:no recent upper respiratory infection; no recent sick contacts; not worse with seasonal allergen exposure;worse with environmental exposure Risk Factors:no current smoking or tobacco use; no history of nasal trauma Alleviating factors:oral steroids Aggravating factors:worse during an upper respiratory infection (a cold); worse with excess fatigue Prior Treatmentoral decongestantCOVID-19 SymptomsReported bypatient.COVID-19 Signs and Symptomscough worsening; fever improving/resolved; shortness of breath resolved; chills improving/resolved;mus annika pain worsening;headache worsening;sore throat worsening; loss of taste or smell resolved; vomiting or diarrhea resolved;fatigue worsening; anorexia improving/resolved Contacts and Exposureclose proximity with person with COVID-19 Quality:dry cough Severity:mild Duration:symptoms lasting 2 days Onset/Timing:cannot identify Associated Symptoms:no sputum production; no wheezing; no nausea; no vomiting; no diarrhea; no lymphadenopathy; no fever/chills; no change in mental status; no hypotension; no tachycardia;fatigue;ru nny nose;ear pain or pressure;headache;body aches Prior Labs and ImagingCOVID-19 nasopharyngeal swab Suitability of residential settingpatient does have separate bedroom and bathroom for patient; patient is able to adhere to hand hygiene and cough etiquette practices Jose Ramon Mcdowell NP [address] [place], [address], PA - [facility] 03/03/2023 10:39:21 06/05/2023 text/html 32 y.o female pt presents with cough, congestion and sore throat x 1 day. Pt denies N.V, abd pain, chest pain or SOB. TALIA CERVANTES [address], [place], [address], PA - [facility] 06/05/2023 20:26:32 OBGyn Episode No OBEpisode recorded.
--- OUTSIDE RECORDS SUMMARY | 2024-11-10 09:55 | XMS_ITS | Clinical Summary ---
Author Organization [address] [place] [address] Address [address] [place] [address] Phone Care Team Providers Care Building Materials Sales Attendant Name Role Phone Physician, Pcp Unknown Primary Care Provider Christina vailable Medications ezetimibe (ZETIA) 10 mg tablet Take 1 tablet (10 mg total) by mouth 1 (one) time each day. Active EVOLOCUMAB SUBQ Inject under the skin. Active Encounters Date Type Department Care Team Description 10/30/2024 10:30 AM EDT Consult Orthopedic [address] [address] Robert Mares MD Carpal tunnel syndrome, bilateral upper limbs from Last 3 Months Social History Tobacco Use Types Packs/Day Years Used Date Smoking Tobacco: Never Assessed Comments Unknown Sex and Gender Information Value Date Recorded Sex Assigned at Not on file Legal Sex Female 8:33 AM EDT Gender Identity Not on file Sexual Orientation Not on file Last Filed Vital Signs Vital Sign Reading Time Taken Comments Blood Pressure - - Pulse - - Temperature - - Respiratory Rate - - Oxygen Saturation - - Inhaled Oxygen Concentration - - Weight 56.7 kg (125 lb) 10/30/2024 10:29 AM EDT Height 149.9 cm (4' 11 ) 10/30/2024 10:29 AM EDT Body Mass Index 25.25 10/30/2024 10:29 AM EDT Plan of Treatment Upcoming Encounters Date Type Department Care Team ([facility] Contact Info) Description 12/03/2024 3:45 PM EDT Office Visit Orthopedic [facility] [address] [address] Robert Mares MD [address] [place] [address] [phone] Health Maintenance Due Date Last Done Comments Hepatitis B Vaccines (1 of 3 - 19+ 3-dose series) 2008 Cervical Cancer Screening: P ap Smear 2010 COVID-19 Vaccine ( - 2023-2 5 season) 2024 HIV Screening 10/29/2024 Social Influencers of Health Screening 10/29/2024 Influenza Vaccine (Season Ended) 2025 08/13/2020, 04/22/2018, 04/08/2014 Depression Screening 05/23/2025 05/23/2024 DTaP,Tdap,and Td Vaccines (4 - Td or Tdap) 11/29/2032 11/29/2022, 04/08/2014, 01/05/2013 MMR Vaccines Aged Out 08/15/2020 No longer eligi ble based on patient's age to complete this topic Hepatitis C Screening Completed 11/22/2022 HIB Vaccines [...] patient's age to complete this topic Meningococcal ACWY Vaccine Aged Out N o longer eligible based on patient's age to complete this topic Meningococcal B Vaccine Aged Out No l onger eligible based on patient's age to complete this topic Pneumococcal Vaccine: Pediatrics (0 to 5 Years) and At-Risk Patients (6 to 64 Years) Aged Out No longer eligible b ased on patient's age to complete this topic RSV Immunization Patients Under 20 months Aged Out No longer eligible b ased on patient's age to complete this topic Varicella Vaccines Aged Out No longer eligible based on patient's age to complete this topic [place] [address] [address] [place] [address] PUBLIC PLANS Care Teams Building Materials Sales Attendant Relationship Specialty Start Date End Date Physician, Pcp Unknown PCP - General 10/29/24
[2024-11-10 10:30] LABS: Basophils Percent Auto 0.4 % (0-2); Eosinophils Absolute Auto 0.3 X10*3/uL (0.0-0.4); Eosinophils Percent Auto 6.3 % (0-4); Hematocrit 39.4 % (37.0-47.0); Hemoglobin 13.4 g/dl (12.0-16.0); Imm Gran Abs Auto 0.02 X10*3/uL (0.00-0.03); Imm Gran Pct Auto 0.4 % (0.0-0.4); Lymphocytes Absolute Auto 1.2 X10*3/uL (1.2-4.9); Lymphocytes Percent Auto 23.2 % (20-40); Mean Corpuscular Hemoglobin 31.3 pg (27.0-33.0); Mean Corpuscular Volume 92.1 fL (80.0-98.0); Mean Platelet Volume 10.6 fL (9.4-12.3); Monocytes Absolute Auto 0.5 X10*3/uL (0.1-1.2); Monocytes Percent Auto 9.6 % (2-11); Neutrophils Absolute Auto 3.1 x10*3/uL (2.0-8.3); Neutrophils Percent Auto 60.1 % (45-73); Platelet Count 156 X10*3/uL (160-400); Red Blood Count 4.28 X10*6/uL (4.20-5.50); Red Cell Distribution Width 12.3 % (11.0-16.0); White Blood Count 5.1 X10*3/uL (4.8-10.8)
[2024-11-10 11:09] LABS: Cholesterol 169 mg/dL (<200); HDL Cholesterol 55 mg/dL (>40); LDL Cholesterol Calculated 106 mg/dL (<100); Triglycerides 43 mg/dL (<150)
[2024-11-10 11:24] LABS: TSH reflex Free T4 0.91 uIU/mL (0.32-4.0)
[2024-11-10 11:33] LABS: Folate 8.9 ng/mL (> or = 4.0); Vitamin B12 801 pg/mL (200-900)
== END 2024-11-10 09:14 | disposition home or self-care (01) ==
LOC: HO.LAB 09:13
PROVIDERS: PCP Internal Medicine; Visit Provider Internal Medicine Endocrinology, Diabetes & Metabolism
DX: F33.2 Major depressive disorder, recurrent severe without psychotic features (principal); E78.5 Hyperlipidemia, unspecified
CPT/HCPCS: 36415; 80061; 82607; 82746; 84443; 85025

== ENCOUNTER 2024-11-12 11:17 | Outpatient (AMB) | payer OTHER, SELFPAY ==
[2024-11-12 11:23] VITALS: BP 110/64; PULSE 69; O2SAT 99; BMI 25.3
--- NOTE | 2024-11-12 11:23 | MHC.OFFVIS ---
Vital Signs 11/12/24 11:23 Height 4 ft 11 in Weight 125 lb 7.088 oz BMI 25.3 BP 110/64 Blood Pressure Location Rt brachial Position Sitting Pulse 69 Pulse Source Pulse Oximeter Pulse Oximetry (%) 99 Oxygen Delivery Method Room Air Intake Visit Reasons: f/u familial hyperlipidemia Intake Note: Patient present today for Familial Hyperlipidemia follow up visit. Patient would like to discuss stopping Repatha today, injection area affected. Allergies No Known Allergies Allergy (Verified 11/12/24 11:25) HPI Comments Details: 34 YO Female who is seen in F/U for HLD. . Stopped atorvastatin because of joint pain in hands and feet and shoulder ?She reports a 3 year history of HLD. She initially was not started on any medications, but then had a lipid panel checked 06/19/19 which revealed total Cholesterol 270, Trig 111, LDL 200 and HDL 48. She was started on Atorvastatin 40 mg PO daily, but stopped this after 2 months when she became . Labs were repeated 09/21/21 which revealed Total Cholesterol 245 and LDL 198. She was started on Atorvastatin, and remains on Atorvastatin 80 mg PO daily now. She reports a distant history of hypothyroidism, but has never been on any medication for this. Repeat TFTs were WNL. She was diagnosed with gestational diabetes during her last . We checked a 2 hour OGTT as well as A1C which were both WNL. She now has had a tubal-ligation and is not planning any more pregnancies. ?Her Mother is adopted but she does report that HLD and CAD do run in her biological mother's family. She is not close with her Father or his side of the family, so is unaware of that family history as well. Mother and Father have no history of HLD. She is unaware of any family history of sudden cardiac . Labs: Laboratory Tests 01/30/22 01/30/22 07/18/22 11:26 11:26 15:37 Creatinine 0.79 Triglycerides 76 97 Cholesterol 195 D 169 LDL Cholesterol Direct 136 H LDL Cholesterol, Calc 108 HDL Cholesterol 49 42 Currently on Repatha 140 mg in 07/2023 . Had difficulty with Crestor . Also on ezetimibe 10 mg . LDL is not at goal . Some issues at injection site [facility] Medical History (Updated 07/19/22 @ 15:21 by Malia Sheffield DO) Goiter History of gestational diabetes HLD (hyperlipidemia) Vitamin D deficiency Hypothyroidism Surgical History Hx of section Family History Father No problems noted. Mother Bipolar 1 disorder Thyroid disease Diabetes mellitus Acute depression Anxiety Social History Alcohol intake: current Alcohol intake frequency: holidays/special occasions only Patient Tobacco Use Status: Former Tobacco user Physical Exam Vital Signs: Last Vital Signs Pulse 69 11/12/24 11:23 BP 110/64 11/12/24 11:23 Pulse Ox 99 11/12/24 11:23 Oxygen Delivery Method Room Air 11/12/24 11:23 BMI result Body Mass Index 25.3 Assessment & Plan Assessment & Plan (1) HLD (hyperlipidemia): Code(s): E78.5 - Hyperlipidemia, unspecified Category: Medical Plan: Is a 34-year-old female with a history of hyperlipidemia most likely familial hypercholesteremia considering degree of LDL elevation. She is currently on Reaptha 140 mg Q2wks and ezetimibe 10 mg Goal LDL should be <100. She is currently slightly above goal After long discussion with the patient, including different options which would include reinitiate the Repatha versus reinitiation of atorvastatin or Crestor we decided to reinitiate the atorvastatin at 20 mg a day combination with the Zetia. We will recheck lipid profile in 6 weeks time with goal <70-100. We also discussed possible use of Nexlilet or Levqio a subcutaneous injection once every 6 months for patients with FH. These are potential options that we can resort to if the patient can not tolerate any the above. Told the patient to contact me should she have issues taking the atorvastatin and will titrate the dose of atorvastatin once lipid profile returned Orders: Orders Lipid Panel 6 Weeks E78.5 - Hyperlipidemia, unspecified Medications: New atorvastatin 20 mg PO DAILY 30 tabs 5RF Discontinued evolocumab (Repatha SureClick) Discontinued Reason: Doctor's Order 140 mg subcut Q2W 2 mL 5RF Coding Level of Care Code Est Pt Level 3 (87572) Diagnoses HLD (hyperlipidemia) E78.5
--- OUTSIDE RECORDS SUMMARY | 2024-11-12 12:46 | XMS_ITS | Clinical Summary ---
Author Organization [address] [place] [address] Address [address] [place] [address] Phone Care Team Providers Care Leather Staker Name Role Phone Physician, Pcp Unknown Primary Care Provider Christina vailable Medications ezetimibe (ZETIA) 10 mg tablet Take 1 tablet (10 mg total) by mouth 1 (one) time each day. Active EVOLOCUMAB SUBQ Inject under the skin. Active Encounters Date Type Department Care Team Description 10/30/2024 10:30 AM EDT Consult Orthopedic [address] [phone] Robert Mares MD Carpal tunnel [...] Upcoming Encounters Date Type Department Care Team ([facility] Contact Info) Description 12/03/2024 3:45 PM EDT Office Visit Orthopedic [facility] [address] [phone] Robert Mares MD [address] [place] [address] [phone] Health Maintenance Due Date Last Done Comments [...] patient's age to complete this topic [place] [address] [place] [address] PUBLIC PLANS Care Teams Leather Staker Relationship Specialty Start Date End Date Physician, Pcp Unknown PCP - General 10/29/24
--- OUTSIDE RECORDS SUMMARY | 2024-11-12 12:46 | XMS_ITS | Clinical Summary ---
Author Organization [employer] Address [address] 7[address] [place] [address] Care Team Providers Care Surgical Training Specialist Name Role Phone Theo Ferro MD Primary [...] Type Department Care Team Description 08/18/[address] [facility] [address] [place], [place] [phone] Theo Ferro MD from Last 3 Months [...] your housing situation today? I have tuan farzad 05/23/[address] you li [...] Influenza Vaccine (#1) 2024 , 04/22/2018, 04/08/2014 Alcohol/Substance Use Screening 05/23/2025 05/23/2024 Depression Screening [...] Procedure Name Priority Date/Time Associated Diagnosis Comments VITAMIN B12/FOLATE, SERUM PANEL Routine 11/10/2024 9:35 AM EDT Severe episode of recurrent major depressive disorder, without psychotic features (CMS/HCC) CBC WITH AUTO DIFFERENTIAL Routine 11/10/2024 9:35 AM EDT Severe episode of recurrent major depressive disorder, without psychotic features (CMS/HCC) HM PAP/HPV Routine 08/28/2023 2:37 PM EST HEPATITIS C AB W/REFL TO HCV RNA, QN, PCR Routine 11/22/2022 8:46 AM EDT Gastroesophageal reflux disease without esophagitis HIV 1 RNA, QN PCR W/RFL MALLORY (RTI,PI,INTEGRASE) Routine 11/22/2022 8:46 AM EDT Gastroesophageal reflux disease without esophagitis from Last 3 Months or Most Recently Relevant to Health Maintenance Results * Vitamin B12 (Cobalamin) and Folate Panel, Serum (11/10/2024 9:35 AM EDT) Vitamin B12 801 200 - 900 pg/mL [facility] Comment:NORMAL 200-900 PG/ML INDETERMINATE 160-199 PG/ML DEFICIENT < 160 PG/ML Folate 8.9 > or = 4.0 ng/mL [facility] Comment:Reference Values:> o r = 4.0 ng/mL< 4.0 ng/mL suggests folate deficiency Methotrexate, aminopterin and folinic acid(leucovorin) are chemotherapeutic agents whose molecularstructures are similar to folate; therefore, the Architectfolate assay cannot be used for patients using these drugs. Blood Venous blood specimen / Unknown 11/10/2024 9:35 AM EDT 11/10/2024 9:35 AM EDT us Theo Mcdowell MD LAB BLOOD ORDERABL ES Final Result [facility] [address] [place] [address] [phone] * (ABNORMAL) CBC auto differential (11/10/2024 9:35 AM EDT) White Blood Count 5.1 4.8 - 10.8 X10*3/uL [facility] Red Blood Count 4.28 4.20 - 5.50 X10*6/uL [facility] Hemoglobin 13.4 12.0 - 16.0 g/dl [facility] Hematocrit 39.4 37.0 - 47.0 % [facility] Mean Corpuscular Volume 92.1 80.0 - 98.0 fL [facility] Mean Corpuscular Hemoglobin 31.3 27.0 - 33.0 pg [facility] Mean Corpuscular HGB Conc 34.0 31.0 - 35.0 g/dl [facility] Red Cell Distribution Width 12.3 11.0 - 16.0 % [facility] Platelet Count 156(L) 160 - 400 X10*3/uL [facility] Mean Platelet Volume 10.6 9.4 - 12.3 fL [facility] Neutrophils Percent Auto 60.1 45 - 73 % [facility] Imm Gran Pct Auto 0.4 0.0 - 0.4 % [facility] Lymphocytes Percent Auto 23.2 20 - 40 % [facility] Monocytes Percent Auto 9.6 2 - 11 % [facility] Eosinophils Percent Auto 6.3(H) 0 - 4 % [facility] Basophils Percent Auto 0.4 0 - 2 % [facility] NRBC Pct Auto 0.0 0.0 - 0.2 /100WBC [facility] Neutrophils Absolute Auto 3.1 2.0 - 8.3 x10*3/uL [facility] Imm Gran Abs Auto 0.02 0.00 - 0.03 X10*3/uL [facility] Lymphocytes Absolute Auto 1.2 1.2 - 4.9 X10*3/uL [facility] Monocytes Absolute Auto 0.5 0.1 - 1.2 X10*3/uL [facility] Eosinophils Absolute Auto 0.3 0.0 - 0.4 X10*3/uL [facility] Basophils Absolute Auto 0.0 0.0 - 0.2 X10*3/uL [facility] NRBC Abs Auto 0.000 0.0 - 0.012 X10*3/uL [facility] Blood Venous blood specimen / Unknown 11/10/2024 9:35 AM EDT 11/10/2024 9:35 AM EDT Theo Mcdowell MD LAB BLOOD ORDERABL ES Final Result [facility] [address] [place] [address] [phone] * HM PAP/HPV (08/28/2023 2:37 PM EST) Jose Guadalupe Provider HEALTH MAINTENANCE Final Result * HIV-1 RNA, Quantitative, Real-Time PCR with Reflex to Genotype (RTI, PI, Integrase) (11/22/2022 8:46 AM EDT) Pathologist [facility] HIV 1 RNA, QN PCR NOT DETECTED copies/mL [facility], HIV 1 RNA, QN PCR NOT DETECTED Log copies/mL [facility], Comment: REFERENCE RANGE: NOT DETECTED copies/mL ?NOT DETECTED ??Log copies/mL This test was performed using Real-Time Polymerase Chain Reaction. Reportable range is 20 to 10,000,000 copies/mL (1.30-7.00 Log copies/mL). 11/22/2022 8:46 AM EDT 11/22/2022 8:48 AM EDT Narrative [facility] - 11/26/2022 3:05 AM EDT FASTING:YES FASTING: YES Theo Mcdowell MD LAB BLOOD ORDERABL ES Final Result Performing Organization Address [facility] Co de Phone Number [facility] [address], [facility] [place] [address] [employer], [address] [place] [address] * Hepatitis C Antibody with Reflex to HCV, RNA, Quantitative, Real-Time PCR (11/22/2022 8:46 AM EDT) Hepatitis C Antibody NON-REACT TRISH NON-REACT TRISH [employer] [place] [employer] Index <0.02 <1.00 [employer] [place] [employer] Comment: HCV antibody was non-reactive. There is no laboratory evidence of HCV infection. In most cases, no further action is required. However, if recent HCV exposure is suspected, a test for HCV RNA (test code 78424) is suggested. For additional information please refer to http://education.[employer]/faq/JZP28u9 (This link is being provided for informational/ educational purposes only.) Blood Venous blood specimen / Unknown 11/22/2022 8:46 AM EDT 11/22/2022 8:48 AM EDT Narrative [facility] - 11/26/2022 3:05 AM EDT FASTING:YES FASTING: YES Theo Mcdowell MD LAB BLOOD ORDERABL ES Final Result Performing Organization Address [facility]/ZIP Co de Phone Number [facility] [address], [facility] [place] [address] [employer] [place] [employer] [address] [place] [address] from Last 3 Months or Most Recently Relevant to Health Maintenance Insurance [facility] Care Teams Surgical Training Specialist Relationship Specialty Start Date End Date Theo Ferro MD [address] [place] [phone] PCP - General Internal Medicine 06/19/19
--- OUTSIDE RECORDS SUMMARY | 2024-11-12 12:46 | XMS_ITS | Data Portability ---
Author Organization TALIA Velásquez s, [address] Address [address] [place] [address] Assessment No assessment recorded. Plan of Treatment Reminders Order Date Submit Date Provider Last Modified By Organization Details Last Modified Time Details Appointments None recorded. Lab SARS CoV 2 (COVID-19) Ag, QL, IA, upper respiratory specimen 2022 023 [facility], [address] [place], [address], 3 20:22:44 rapid flu (A+B) 2022 023 [facility], [address] [place], [address], 3 20:22:45 rapid strep group A, throat 2022 023 [email or web address] [facility], [address] [place], [address], 3 20:22:46 streptococc us group A, culture, throat 2022 023 BR[facility] ([facility], [address] [place] [address], [place], [address], 3 06:08:21 SARS CoV 2 (COVID-19) Ag, QL, IA, upper respiratory specimen 2022 023 [facility], [address] [place], [address], 3 10:30:00 rapid flu (A+B) 2022 023 [email or web address] [facility] [address], [address] [place], [address], 10:37:04 Referral None recorded. Procedures None recorded. Surgeries None recorded. Imaging None recorded. Medication Orders Tylenol Cold and Flu Severe 5 mg-10 mg-325 mg-200 mg/15 mL oral liquid 2022 023 [id number] [address] [place], [address], 20:24:02 ipratropium bromide 42 mcg (0.06 %) nasal spray 2022 023 [facility], [address] [place], [address], 20:24:01 albuterol sulfate HFA 90 mcg/actuati on aerosol inhaler 2022 023 [facility], [address] [place], [address], 20:24:02 fexofenadin e-pseudoeph edrine ER 180 mg-240 mg tablet,ext. release 24 hr 2022 023 [email or web address] [facility], [address] [place], [address], 3 19:57:32 Allergy Relief (fluticason e) 50 mcg/actuati on nasal spray,suspe nsion 2022 023 [facility], [address] [place], [address], 19:57:31 Patient TargetsNo targets recorded. Patient Instructions Encounter Date Encounter Id Patient Instructions Last Modified By Organization Details Last Modified Time 03/03/2023 [id number] coronavirus (covid-19): care instructions [email or web address] Not available [...] care for yourself at home? Take an cxip-ryk-ognnkxa pain medicine. Avoid Ibuprofen, Aleve and Aspirin if . If the doctor prescribed antibiotics, take them as directed. Do not stop taking them just because you feel better. You need to take the full course of antibiotics. Be careful when taking oclg-pev-zhreued cold or influenza (flu) medicines and Tylenol [...] wear a mask. For travel guidance, see [facility]? s Travel webpage. Do not travel. Stay [...] masking (see below). For travel guidance, see [facility]? s Travel webpage. Not available 03/03/2023 10:29:57 06/05/2023 [id number] Acute upper respiratory infection is a common [...] Pain 3. Wheezing 4. Coughing up Blood [email or web address] Not available 06/05/2023 20:23:58 Reason for Referral None Reported. Results Created Date Observation Date Name Description Value Unit Range Abnormal Flag Note LastModifiedBy Organization Detail LastModifiedTime 03/03/2003/03/2023 rapid flu (A+B) Unknown Analyte negati ve Not Available [address] [address] [place], [address], 03/03/2023 10:05:35 03/03/20 23 03/03/2023 rapid flu (A+B) Unknown Analyte negati ve Not Available [address] [address] [place], [address], 03/03/2023 10:05:35 03/03/20 23 03/03/2023 SARS CoV 2 (COVI D-19) Ag, QL, IA, upper respi rator y speci men Unknown Analyte positi ve Not Available [address] [place], [address], 03/03/2023 10:04:16 06/05/20 23 06/09/2023 BETA STREP GP A CULTU RE beta strep gp A culture NEGATI VE Refer ence Range : Negat kodi Not Available [facility] ([facility]) [address] [facility], [place], [address], 06/09/2023 06:08:21 06/05/2006/05/2023 rapid flu (A+B) Unknown Analyte negati ve Not Available [facility] [address] [address] [place], [address], 06/05/2023 20:18:13 06/05/20 23 06/05/2023 rapid flu (A+B) Unknown Analyte negati ve Not Available [facility] [address] [place], [address], 06/05/2023 20:18:13 06/05/20 23 06/05/2023 SARS CoV 2 (COVI D-19) Ag, QL, IA, upper respi rator y speci men Unknown Analyte negati ve Not Available [facility] [address] [address] [place], [address], 06/05/2023 20:17:56 06/05/2006/05/2023 rapid strep group A, throa t Unknown Analyte negati ve Not Available [facility] [address] [address] [place], [address], 06/05/2023 20:18:27 06/05/20 23 06/05/2023 rapid strep group A, throa t Unknown Analyte yes Not Available [facility] [address] [place], [address], 06/05/2023 20:18:27 Result Notes None recorded. Problems Name Problem SNOMED Code Status Onset Date Resolution Date Notes Provider Name and Address Organization Details Recorded Time Hyperlipidemia 56070170 Active 2022 JAYNA CUELLODENG roblero, [place] - [...] bromide 42 mcg (0.06 %) nasal spray [place] 2 sprays 3 times a day by [...] e) 50 mcg/actuati on nasal spray,suspe nsion [place] 1 spray twice a day by intranasa [...] Updated DateTime 3 149.86 cm 25.2 kg/m2 31945.0 5 g 16 /min 7 98 % 98 % 79 /min 97.7 [degF] 136 mm[Hg] 72 mm[Hg] JAYNA SPARKS [employer] 3 10:09:08 Date Recorded Body height Body mass index (BMI) Body weight Oxygen saturation Oxygen saturation in Arterial blood by Pulse oximetry Heart rate Respiratory rate Body temperature Systolic blood pressure Diastolic blood pressure Provider Name and Address Organization Details Last Updated DateTime 3 149.86 cm 25.2 kg/m2 89797.0 5 g 98 % 98 % 104 /min 17 /min 98.9 [degF] 124 mm[Hg] 76 mm[Hg] Eloise Love PA - [employer] 3 20:00:58 Social History Question Answer Notes [...] SNOMED-CT Code Diagnosis ICD10 Code Diagnosis Note [id number] [place] [address] [place] [address] 03/03/2023 09:53:46 03/03/2023 10:38:45 Exposure to SARS-CoV-2 862374192 Z20.822 Acute sinusitis 69830109 J01.90 [id number] TALIA CERVANTES [address] [place] [address] 06/05/2023 19:14:45 06/05/2023 20:25:52 Upper respiratory infection 56784476 J06.9 Acute pharyngitis 516508 003 J02.9 Health Concerns Section Related Observation LastModified by Organization Detai ls LastModified Time None Recorded Concern Status LastModified by Organization Details LastModified Time None Recorded Advance Directives Directive None Recorded Payers Insurance Date Sequence Insurance Name Policy Number Policy Ag Covered Member ID Ag Member ID Guarantor Name 06/11/2023 1 [facility] [id number] [place] Sorto [id number] Monet Sorto 06/11/2023 1 [facility] (HMO) [id number] [place] Sorto [id number] [place] Sorto Notes Date Note Type [...] etiquette practices Jose Ramon Mcdowell NP [address] [place], [address], [place] - [employer] [facility] 03/03/2023 10:39:21 06/05/2023 text/html 32 y.o female pt presents with cough, congestion and sore throat x 1 day. Pt denies N.V, abd pain, chest pain or SOB. TALIA CERVANTES [address] [place], [address], [place] - [employer] [facility] 06/05/2023 20:26:32 OBGyn Episode No OBEpisode recorded.
--- OUTSIDE RECORDS SUMMARY | 2024-11-12 12:46 | XMS_ITS | Encounter Summary ---
Author Organization [employer] Address [address] [place] [address] Care Team Providers Care Senior Medical Director Name Role Phone Theo Ferro MD Primary Care Prov ider Encounter Details Date Type Department Care Team (Late st Contact Info) Description 08/06/2024 Orders Only [facility] [address] [place] [address] Provider, MD Jose Guadalupe Social History Tobacco Use Types Packs/Day Years [...] documented as of this encounter Care Teams Senior Medical Director Relationship Specialty Start Date End Date Theo Ferro MD [address] [place] [phone] PCP - General Internal Medicine 06/19/19 documented as of this encounter
== END 2024-11-12 12:07 | disposition home or self-care (01) ==
LOC: HO.ENCR 11:18
PROVIDERS: Visit Provider Internal Medicine Endocrinology, Diabetes & Metabolism
DX: E78.5 Hyperlipidemia, unspecified (principal)
CPT/HCPCS: 99213

== ENCOUNTER 2025-02-11 09:07 | Outpatient (REF) | payer OTHER, SELFPAY ==
--- OUTSIDE RECORDS SUMMARY | 2025-02-11 09:27 | XMS_ITS | Encounter Summary ---
Author Organization [employer] Address [address] [place] [address] Care Team Providers Care Film Touch Up Inspector Name Role Phone Theo Ferro MD Primary Care Prov ider Encounter Details Date Type Department Care Team (Late st Contact Info) Description 08/06/2024 Orders Only [facility] [address] [place] [address] Provider, MD Jose Guadalupe Social History Tobacco [...] documented as of this encounter Care Teams Film Touch Up Inspector Relationship Specialty Start Date End Date Theo Ferro MD [address] [place] [phone] PCP - General Internal Medicine 06/19/19 documented as of this encounter
--- OUTSIDE RECORDS SUMMARY | 2025-02-11 09:27 | XMS_ITS | Clinical Summary ---
Author Organization [address] [facility] Address [address] [place] [address] Phone Care Team Providers Care In Home Sales Consultant Name Role Phone Physician, Pcp Unknown Primary Care Provider Christina vailable Medications ezetimibe (ZETIA) 10 mg tablet Take 1 tablet (10 mg total) by mouth 1 (one) time each day. Active EVOLOCUMAB SUBQ Inject under the skin. Active Encounters Date Type Department Care Team Description 12/03/2024 Telephone Orthopedic Surgery [facility] [address] [facility] [address] [place] [phone] Karen Michaels from Last 3 Months Social History Tobacco [...] Upcoming Encounters Date Type Department Care Team ([facility] Contact Info) Description 02/24/2025 3:15 PM EDT Appointment [facility] Neurodiagnostic [address] [place] [phone] 03/31/2025 9:40 AM EDT Consult Gastroenterology [facility] 175 [facility] 175 [facility] [address] [place] [address] Nerissa Chilel, JENNIFFER 175 [facility] [address] [place] [address] Health Maintenance Due Date Last Done Comments Hepatitis B Vaccines (1 of 3 - 19+ 3-dose series) 2008 Cervical Cancer Screening: P ap Smear 2010 COVID-19 Vaccine (2023-2 5 season) 2024 Depression Screening 07/09/2024 HIV Screening 10/29/2024 Social Influencers of Health Screening 10/29/2024 Influenza Vaccine (#1) 2025 , 04/22/2018, 04/08/2014 DTaP,Tdap,and Td Vaccines (4 - Td or [...] 5 Years) and At-Risk Patients (6 to 49 Years) Aged Out No longer eligible b ased on patient's age to complete this topic RSV Immunization Patients Under 20 months Aged Out No longer eligible b ased on patient's age to complete this topic Varicella Vaccines Aged Out No longer eligible based on patient's age to complete this topic Insurance [facility] [employer] [place] [id number] Care Teams In Home Sales Consultant Relationship Specialty Start Date End Date Physician, Pcp Unknown PCP - General 10/29/24
[2025-02-11 10:37] LABS: Cholesterol 169 mg/dL (<200); HDL Cholesterol 46 mg/dL (>40); Triglycerides 47 mg/dL (<150)
== END 2025-02-11 09:08 | disposition home or self-care (01) ==
LOC: HO.LAB 09:07
PROVIDERS: Visit Provider Internal Medicine Endocrinology, Diabetes & Metabolism
DX: E78.5 Hyperlipidemia, unspecified (principal)
CPT/HCPCS: 36415; 80061

== ENCOUNTER → 2025-02-24 23:59 | Outpatient (BNV) | payer OTHER, SELFPAY | PROVIDERS: Visit Provider Psychiatry & Neurology Neurology | DX: G56.01 Carpal tunnel syndrome, right upper limb (principal) | CPT/HCPCS: 95886; 95912 ==

== ENCOUNTER 2025-04-22 11:24 | Outpatient (AMB) | payer OTHER, SELFPAY ==
[2025-04-22 11:27] VITALS: BP 112/68; PULSE 78; O2SAT 98; BMI 25.1
--- NOTE | 2025-04-22 11:27 | A.OFFVIS_ITS ---
Vital Signs 04/22/25 11:27 Height 4 ft 11 in Weight 124 lb 1.924 oz BMI 25.1 BP 112/68 Blood Pressure Location Lt brachial Position Sitting Pulse 78 Pulse Source Pulse Oximeter Pulse Oximetry (%) 98 Oxygen Delivery Method Room Air Intake Visit Reasons: f/u familial hyperlipidemia Intake Note: Patient present today for Familial Hyperlipidemia follow up visit.? Patient was put on new control, which may affect her cholesterol. Accompanied by: Self / Same As Patient Allergies No Known Allergies Allergy (Verified 04/22/25 11:31) Medication List - Last Reconciled 04/22/25 by Coleman Nicole MD atorvastatin 20 mg PO DAILY cholecalciferol (vitamin D3) 100 mcg (2 x 50 mcg (2,000 unit)) PO DAILY 30 days drospirenone-ethinyl estradiol 3-0.02 mg (Archana (28)) 1 tab PO DAILY ezetimibe 10 mg PO DAILY vitamin B complex 1 tab PO DAILY Is last menstrual period known: Yes Last menstrual period: 04/08/25 HPI Comments Details: 34 YO Female who is seen in F/U for HLD due to FH . . Stopped atorvastatin in past because of joint pain in hands and feet and shoulder ?She reports a 3 year history of HLD. She initially was not started on any medications, but then had a lipid panel checked 06/19/19 which revealed total Cholesterol 270, Trig 111, LDL 200 and HDL 48. She was started on Atorvastatin 40 mg PO daily, but stopped this after 2 months when she became . Labs were repeated 09/21/21 which revealed Total Cholesterol 245 and LDL 198. She was restarted on Atorvastatin, and remains on Atorvastatin 20 mg PO daily now as well as ezetimide 10 mg . She reports a distant history of hypothyroidism, but has never been on any medication for this. Repeat TFTs were WNL. She now has had a tubal-ligation and is not planning any more pregnancies. ?Her Mother is adopted but she does report that HLD and CAD do run in her biological mother's family. She is not close with her Father or his side of the family, so is unaware of that family history as well. Mother and Father have no history of HLD. She is unaware of any family history of sudden cardiac . Labs: Laboratory Tests 0701/30/22 07/18/22 11:26 11:26 15:37 Creatinine 0.79 Triglycerides 76 97 Cholesterol 195 D 169 LDL Cholesterol Direct 136 H LDL Cholesterol, Calc 108 HDL Cholesterol 49 42 Currently off Repatha 140 mg in 07/2023 . Had difficulty with Crestor . Last lipid profile in 02/2025 was not at goal The patient is a 34-year-old female presenting for management of elevated LDL cholesterol and familial hypercholesterolemia. The patient has a history of familial hypercholesterolemia, a genetic condition affecting cholesterol metabolism due to a defect in the liver's ability to process cholesterol. Her LDL cholesterol was last measured at 114 mg/dL, which is above the target level of less than 100 mg/dL for someone with her condition. She is currently taking atorvastatin and ezetimibe daily to manage her cholesterol levels. The patient recently consulted her CRUSHER AND BLENDER OPERATOR for unrelated issues and was advised to start a control pill, which may increase triglyceride levels, although her primary concern remains LDL cholesterol. There is no history of heart attacks or strokes, and she reports occasional pain, which she plans to discuss with a gray mixing operator. [facility] Medical History (Updated 07/19/22 @ 15:21 by Malia Sheffield DO) Goiter History of gestational diabetes HLD (hyperlipidemia) Vitamin D deficiency Hypothyroidism Surgical History Hx of section Family History Father No problems noted. Mother Bipolar 1 disorder Thyroid disease Diabetes mellitus Acute depression Anxiety Social History Alcohol intake: current Alcohol intake frequency: holidays/special occasions only Patient Tobacco Use Status: Former Tobacco user Female Reproductive History Menstrual Date of last menstrual period: 04/08/25 Physical Exam Vital Signs: BMI result Body Mass Index 25.1 Assessment & Plan Assessment & Plan (1) HLD (hyperlipidemia): Code(s): E78.5 - Hyperlipidemia, unspecified Category: Medical Plan: 1. Familial hypercholesterolemia The patient has a genetic condition affecting cholesterol metabolism, leading to elevated LDL cholesterol levels. Current management includes atorvastatin and ezetimibe. The plan is to increase atorvastatin to 40 mg daily to achieve better control of LDL levels, aiming for a target of less than 100 mg/dL, ideally under 70 mg/dL. Monitoring of cholesterol levels will continue, and the patient is advised to maintain adherence to the medication regimen. 2. Elevated LDL cholesterol The patient's LDL cholesterol is currently at 114 mg/dL. The plan includes increasing atorvastatin dosage and continuing ezetimibe. The patient is informed about the potential impact of control on triglycerides, although this is not her primary concern. Follow-up will focus on achieving target LDL levels and assessing tolerance to the increased medication dosage. During the visit, we discussed the patient's familial hypercholesterolemia and the need to manage her elevated LDL cholesterol levels. I recommended increasing the atorvastatin dosage to 40 mg daily, emphasizing the importance of achieving LDL levels below 100 mg/dL, ideally under 70 mg/dL. We also reviewed the potential impact of control on triglycerides, although this is not the primary concern. The patient was advised to continue her current medications and to follow up for monitoring of cholesterol levels and assessment of medication tolerance. - Continue taking atorvastatin and ezetimibe as prescribed. - Increase atorvastatin to 40 mg daily as discussed. - Monitor cholesterol levels regularly and report any side effects. - Follow up with rheumatology for pain management. The patient had an opportunity to ask questions regarding treatment plan. The patient expressed understanding and agreement with the above treatment plan. The patient is aware they should contact our office by phone for worsening glucose readings or for any low blood sugars which may warrant a change in diabetes medication. Compliance is encouraged with medications and any followup testing/consults which may have been ordered. Patient was informed and verbally consented to the use of an ambient scribe for clinic note documentation during this visit. Orders: Orders Lipid Panel 2 Months E78.5 - Hyperlipidemia, unspecified Medications: New atorvastatin (Lipitor) 40 mg PO DAILY 90 tabs 0RF Discontinued atorvastatin Discontinued Reason: Doctor's Order 20 mg PO DAILY 30 tabs 5RF Coding Level of Care Code Est Pt Level 3 (01462) Diagnoses HLD (hyperlipidemia) E78.5
--- OUTSIDE RECORDS SUMMARY | 2025-04-22 14:17 | XMS_ITS | Data Portability ---
Author Organization [facility], [address] Address [address] [place] [address] Assessment No assessment recorded. Plan of Treatment Reminders Order Date Submit Date Provider Last Modified By Organization Details Last Modified Time Details Appointments None recorded. Lab SARS CoV 2 (COVID-19) Ag, QL, IA, upper respiratory specimen 2022 023 [email or web address] [facility] [address], [address] [place], [address], 3 20:22:44 rapid flu (A+B) 2022 023 [email or web address] [facility] [address], [address] [place], [address], 3 20:22:45 rapid strep group A, throat 2022 023 [email or web address] [facility], [address] [place], [address], 3 20:22:46 streptococc us group A, culture, throat 2022 023 [facility] ([facility], [address] [place] [address], [place], [address], 3 06:08:21 SARS CoV 2 (COVID-19) Ag, QL, IA, upper respiratory specimen 2022 023 [facility], [address] [place], [address], 10:30:00 rapid flu (A+B) 2022 023 [email or web address] [facility] [address], [address] [place], [address], 10:37:04 Referral None recorded. Procedures None recorded. Surgeries None recorded. Imaging None recorded. Medication Orders Tylenol Cold and Flu Severe 5 mg-10 mg-325 mg-200 mg/15 mL oral liquid 2022 023 [id number] [address] [place], [address], 20:24:02 ipratropium bromide 42 mcg (0.06 %) nasal spray 2022 023 [facility] [address] [place], [address], 20:24:01 albuterol sulfate HFA 90 mcg/actuati on aerosol inhaler 2022 023 [facility], [address] [place], [address], 20:24:02 fexofenadin e-pseudoeph edrine ER 180 mg-240 mg tablet,ext. release 24 hr [email or web address] [facility][id number], [address] [place], [address], 19:57:32 Allergy Relief (fluticason e) 50 mcg/actuati on nasal spray,suspe nsion 2022 023 [facility], [address] [place], [address], 19:57:31 Patient TargetsNo targets recorded. Patient Instructions Encounter Date Encounter Id Patient Instructions Last Modified By Organization Details Last Modified Time 03/03/2023 [id number] coronavirus (covid-19): care instructions estelita Not available 03/03/2023 10:29:59 Sinusitis is an [...] care for yourself at home? Take an yipr-jbs-skdbgnd pain medicine. Avoid Ibuprofen, Aleve and Aspirin if . If the doctor prescribed antibiotics, take them as directed. Do not stop taking them just because you feel better. You need to take the full course of antibiotics. Be careful when taking ikwl-gyh-dawkhwy cold or influenza (flu) medicines and Tylenol [...] and isolate from others in your home. Y ou are likely most infectious during these first 5 days. W ear a high-quality mask if you must be around others at home and in public. Do not go places where you are unable to wear a mask. For travel guidance, see [facility] s Travel webpage. Do not travel. Stay home and separate from others as much as possible. Use a separate bathroom, if possible. Take steps to improve ventilation at home, if possible. Don t share personal household items, like cups, towels, and utensils. Monitor your symptoms. If you have an emergency warning sign (like trouble breathing), seek emergency medical care immediately. If you had symptoms and: Your symptoms are improving You may end isolation after day 5 if: Y ou are fever-free for 24 hours (without the use of fever-reducing medication). Your symptoms are not improving Continue to isolate until: Y ou are fever-free for 24 hours (without the use of fever-reducing medication). Your symptoms are improving. R egardless of when you end isolation Until at [...] masking (see below). For travel guidance, see [facility] s Travel webpage. Not available 03/03/2023 10:29:57 06/05/2023 [id number] Acute upper respiratory infection is a common [...] Pain 3. Wheezing 4. Coughing up Blood [email or web address] Not available 06/05/2023 20:23:58 Reason for Referral None Reported. Results Created Date Observation Date Name Description Value Unit Range Abnormal Flag Note LastModifiedBy Organization Detail LastModifiedTime 03/03/2003/03/2023 rapid flu (A+B) Unknown Analyte negati ve Not Available [facility] [address] [place] [address], [address], 03/03/2023 10:05:35 03/03/20 23 03/03/2023 rapid flu (A+B) Unknown Analyte negati ve Not Available [address] [place], [address], 03/03/2023 10:05:35 03/03/20 23 03/03/2023 SARS CoV 2 (COVI D-19) Ag, QL, IA, upper respi rator y speci men Unknown Analyte positi ve Not Available [address] [place], [address], 03/03/2023 10:04:16 06/05/20 23 06/09/2023 BETA STREP GP A CULTU RE beta strep gp A culture NEGATI VE Refer ence Range : Negat kodi Not Available [facility] ([facility]) [address], [place], [address], 06/09/2023 06:08:21 06/05/20 23 06/05/2023 rapid flu (A+B) Unknown Analyte negati ve Not Available [facility] [address] [place], [address], 06/05/2023 20:18:13 06/05/20 23 06/05/2023 rapid flu (A+B) Unknown Analyte negati ve Not Available [facility] [address] [place], [address], 06/05/2023 20:18:13 06/05/20 23 06/05/2023 SARS CoV 2 (COVI D-19) Ag, QL, IA, upper respi rator y speci men Unknown Analyte negati ve Not Available [facility] [address] [place], [address], 06/05/2023 20:17:56 06/05/20 23 06/05/2023 rapid strep group A, throa t Unknown Analyte negati ve Not Available [facility] [address] [place], [address], 06/05/2023 20:18:27 06/05/20 23 06/05/2023 rapid strep group A, throa t Unknown Analyte yes Not Available [facility] [place] [address] [place], [address], 06/05/2023 20:18:27 Result Notes None recorded. Problems Name Problem SNOMED Code Status Onset Date Resolution Date Notes Provider Name and Address Organization Details Recorded Time Hyperlipidemia 05573406 Active 2022 TALIA Mann - [facility] 10:06:35 Problem Notes None recorded. Procedures Surgical History Date Name Laterality Status Provider Name and Address Organization Details Recorded Time section completed JAYNAKENNETH SPARKS PA - [facility] 03/03/2023 10:06:45 ligation of fallopian tube completed JAYNAKENNETH SPARKS PA - [facility] 03/03/2023 10:06:57 Imaging [...] bromide 42 mcg (0.06 %) nasal spray [place] 2 sprays 3 times a day by [...] e) 50 mcg/actuati on nasal spray,suspe nsion [place] 1 spray twice a day by intranasa [...] Pulse oximetry Heart rate Body temperature Systolic And Diastolic Provider Name and Address Organization Details Last Updated DateTime 3 149.86 cm 25.2 kg/m2 67790.0 5 g 16 /min 7 98 % 98 % 79 /min 97.7 [degF] 136/72 mm[Hg] JAYNA SPARKS PA - [facility] 3 10:09:08 Date Recorded Body height Body mass index (BMI) Body weight Oxygen saturation Oxygen saturation in Arterial blood by Pulse oximetry Heart rate Respiratory rate Body temperature Systolic And Diastolic Provider Name and Address Organization Details Last Updated DateTime 3 149.86 cm 25.2 kg/m2 66173.0 5 g 98 % 98 % 104 /min 17 /min 98.9 [degF] 124/76 mm[Hg] Eloise Love PA - [facility] 3 20:00:58 Social History Question Answer Notes LastModified by Organizat ion Details LastModified Time Tobacco Smoking Status Former Smoker JAYNA roblero PA - [facility] 03/03/2023 10:07:37 When Did You Quit Smoking? 1-5yearssin maritzaastcijake ette Quit 4 Years Ago Information not available 03/03/2023 Have You Had A Flu Shot This Season? Yes Information not available 06/05/2023 Have You Had Direct Contact, Or Contact During Intimacy, With Monkeypox Rash, Scabs, Or Body Fluids From A Person With Monkeypox? No Information not available 06/05/2023 What Was The Date Of Your Most Recent Tobacco Screening? 06/05/2023 Information not available 06/05/2023 Have You Recently Traveled Abroad? No Information not available 03/03/2023 Sex: Unknown Functional Status Question Answer Note LastModified by Organizat ion Details LastModified Time Do you use any illicit or recreational drugs? No Information not available 03/03/2023 Do you or have you ever used any other forms of tobacco or nicotine? No Information not available 06/05/2023 What is your level of alcohol consumption? Occasional Information not available 03/03/2023 Mental Status None recorded. Family History Relationship [...] Diagnosis SNOMED-CT Code Diagnosis ICD10 Code Diagnosis IMO Codes Diagnosis Note [id number] [place] [address] [place] [address] 03/03/2023 09:53:46 03/03/2023 10:38:45 Exposure to SARS-CoV-2 330806108 Z20.822 Acute sinusitis 47592343 J01.90 [id number] [facility]ANTES [facility] [facility] [address] [place] [address] 06/05/2023 19:14:45 06/05/2023 20:25:52 Upper respiratory infection 80545819 J06.9 Acute pharyngitis 565641 003 J02.9 Health Concerns Section Related Observation LastModified by Organization Detai ls LastModified Time None Recorded Concern Status LastModified by Organization Details LastModified Time None Recorded Advance Directives Directive None Recorded Payers Insurance Date Sequence Insurance Name Policy Number Policy Ag Covered Member ID Ag Member ID Guarantor Name 06/11/2023 1 [facility] Simple-Fill [facility] [id number] [place] Sorto [id number] 1 [place] Sort[place] 06/11/2023 1 [facility] [id number] [place] Sorto [id number] 1 [place] Sorto Notes Date Note Type Note Provider Name and Address Organization Details Recorded Time 3 text/html Sinus Complaints UCReported by PatientHPIFor location, patient reportssinus pain,facial pain, andsinus pressure. For associated symptoms, patient reportsdifficulty breathing,post nasal drip,nasal passage blockage __, andcoughbut reportsno fever,no nausea or vomiting,no sore throat,no ear fullness,no nasal itching,no eye itching, andno dizziness. For quality, patient reportsworseningbut reportsminimal discomfortandclear. For context, patient reportsworse with environmental exposurebut reportsno recent upper respiratory infection,no recent sick contacts, andnot worse with seasonal allergen exposure. For onset/timing, patient reportsworse in amandworse in pm. For duration, patient reportsfrequent. For severity, patient reportsmoderate. For risk factors, patient reportsno current smoking or tobacco useandno history of nasal trauma. For alleviating factors, patient reportsoral steroids. For aggravating factors, patient reportsworse during an upper respiratory infection (a cold)andworse with excess fatigue. For prior treatment, patient reportsoral decongestant. COVID-19 SymptomsReported by PatientUpper Respiratory SymptomsFor covid-19 signs and symptoms, patient reportscough worsening,muscle pain worsening,headache worsening,sore throat worsening, andfatigue worseningbut reportsfever improving/resolved,short ness of breath resolved,chills improving/resolved,loss of taste or smell resolved,vomiting or diarrhea resolved, andanorexia improving/resolved. For quality, patient reportsdry cough. For associated symptoms, patient reportsfatigue,runny nose,ear pain or pressure,headache, andbody achesbut reportsno sputum production,no wheezing,no nausea,no vomiting,no diarrhea,no lymphadenopathy,no fever/chills,no change in mental status,no hypotension, andno tachycardia. For contacts and exposure, patient reportsclose proximity with person with covid-19. For severity, patient reportsmild. For duration, patient reportssymptoms lasting 2 days. For onset/timing, patient reportscannot identify. For prior labs and imaging, patient reportscovid-19 nasopharyngeal swab. For suitability of residential setting, patient reportspatient does have separate bedroom and bathroom for patientandpatient is able to adhere to hand hygiene and cough etiquette practices. Shortness of BreathReported by Patient Jose Ramon Mcdowell NP [address] [place], [address], [place] - [facility] 03/03/2023 10:39:21 3 text/html 32 y.o female pt presents with cough, congestion and sore throat x 1 day. Pt denies N.V, abd pain, chest pain or SOB. TALIA CERVANTES [address] [place], [address], PA [employer] [facility] 06/05/2023 20:26:32 OBGyn Episode No OBEpisode recorded.
== END 2025-04-22 11:47 | disposition home or self-care (01) ==
LOC: HO.ENCR 11:25
PROVIDERS: Visit Provider Internal Medicine Endocrinology, Diabetes & Metabolism
DX: E78.5 Hyperlipidemia, unspecified (principal)
CPT/HCPCS: 99213